=== PATIENT | female | born 1965 | race Caucasian/White ===

== ENCOUNTER → 2017-08-10 | Outpatient (CLI) | payer OTHER, SELFPAY ==
[2017-08-10 10:09] LABS: Absolute Lymphocyte Count 2.87 X10^3/ul (0.83-4.51); Absolute Neutrophil Count 4.6 X10^3/uL (2.0-7.7); Basophil# 0.05 X10^3/uL; Basophil% 0.6 % (0-1); Eosinophil# 0.18 X10^3/uL; Eosinophils% 2.2 % (0-5); Hematocrit 38.9 % (37-47); Hemoglobin 12.7 g/dl (12.0-15.0); Lymphocyte # 2.87 X10^3/ul (4.0); Lymphocyte % 35.2 % (19-41); Mean Corp Hgb Conc 32.6 g/gl (32-36); Mean Corpuscular Hgb 28.4 pg (27.0-32.0); Monocyte# 0.46 X10^3/uL; Monocyte% 5.6 % (0-10); Neutrophil # 4.59 X10^3/uL (2.7-7.7); Neutrophil % 56.3 % (47-70); Platelet Count 343 K/mm3 (150-450); RBC Distribution Width CV 14.6 % (11.6-14.6); RBC Distribution Width SD 46.4 fl (35.1-43.9); Red Blood Count 4.47 M/mm3 (4.2-5.4); White Blood Count 8.2 K/mm3 (4.4-11.0)
[2017-08-10 10:10] LABS: POSITIVE COUNT NO; POSITIVE DIFFERENTIAL NO; POSITIVE MORPHOLOGY NO
[2017-08-10 10:32] LABS: Vitamin B12 562 pg/mL (211-911)
[2017-08-10 10:39] LABS: ALB/GLOB Ratio 1.1 RATIO (0.9-2.4); AST(SGOT) 49 U/L (15-37); Alanine Aminotransfer ALT/SGPT 88 U/L (13-56); Albumin, Serum 3.7 g/dL (3.2-5.0); Alkaline Phosphatase 82 U/L (45-117); Anion Gap 8 (5-15); BUN 15 mg/dL (7-18); BUN/Creat Ratio 17.6 RATIO (10-20); Calcium,Total 8.4 mg/dL (8.5-10.1); Chloride 111 mmol/L (98-107); Creatinine, Serum 0.85 mg/dL (0.55-1.02); EST Glomerular Filtration Rate 74 mL/min (>60); Est Glom Filt Rate - Afr Amer 90 mL/min (>60); Globulin 3.5 g/dL (2.2-4.2); Glucose 112 mg/dL (74-106); Potassium 3.8 mmol/L (3.5-5.1); Protein, Total 7.2 g/dL (6.4-8.2); Sodium Level 143 mmol/L (136-145); Thyroid Stim Hormone (TSH) 1.84 uIU/mL (0.358-3.74)
[2017-08-10 10:46] LABS: Hemoglobin A1c 5.7 % (4.2-6.3)
[2017-08-13 15:13] LABS: Methylmalonic Acid Bld 87 nmol/L (0-378)
== END | disposition home or self-care (01) ==
LOC: MTLAB 08:09
PROVIDERS: Family Provider Family Medicine; PCP Family Medicine; Visit Provider Family Medicine
DX: E88.81 Metabolic syndrome and other insulin resistance (principal); R20.2 Paresthesia of skin
CPT/HCPCS: 36415; 80053; 82607; 83036; 83921; 84443; 85025

== ENCOUNTER → 2018-03-13 09:39 | Outpatient (CLI) | payer OTHER, SELFPAY ==
--- NOTE | 2018-03-13 09:46 | RAD_ITS ---
STUDY: X-RAY - LEFT ANKLE REASON FOR EXAM: Female, 52 years old. Pain and swelling following a twisting injury. TECHNIQUE: 3 view(s) of the ankle. COMPARISON: None. FINDINGS: Normal visualized distal tibia and fibula. Nondisplaced also fracture of the lateral malleolus. Normal tibiotalar articulation and ankle mortise. A spur is seen at the insertion of the Achilles tendon. The visualized subtalar, talonavicular, calcaneocuboid and tarsal articulations are normal. Soft tissue swelling. RAD/Ankle min 3 Views IMPRESSION: Nondisplaced avulsion fracture of the lateral malleolus with overlying soft tissue swelling. Electronically Signed: Mason Gonzalez MD at 10:10 EST Tel [phone], Service support ,
== END ==
PROVIDERS: Family Provider Family Medicine; PCP Family Medicine; Referring Provider Nurse Practitioner Family; Visit Provider Nurse Practitioner Family
DX: S93.402A Sprain of unspecified ligament of left ankle, initial encounter (principal)
CPT/HCPCS: 73610

== ENCOUNTER → 2018-11-04 16:02 | Outpatient (CLI) | payer OTHER, SELFPAY ==
[2016-12-18 08:55] VITALS: BMI 31.5
[2018-11-04 17:57] LABS: AST(SGOT) 50 U/L (15-37); Alanine Aminotransfer ALT/SGPT 90 U/L (13-56); Albumin, Serum 3.7 g/dL (3.2-5.0); Alkaline Phosphatase 107 U/L (45-117); Bilirubin, Direct 0.08 mg/dL (0.00-0.30); Globulin 3.6 g/dL (2.2-4.2); Protein, Total 7.3 g/dL (6.4-8.2)
== END ==
PROVIDERS: Family Provider Family Medicine; PCP Family Medicine; Referring Provider Family Medicine; Visit Provider Family Medicine
DX: B35.1 Tinea unguium (principal)
CPT/HCPCS: 36415; 80076

== ENCOUNTER 2021-05-23 16:49 | Outpatient (CLI) | payer BC, SELFPAY | END 2021-05-23 23:59 | disposition short-term general hospital (02) | LOC: MFPLAB 16:49 | PROVIDERS: PCP Family Medicine; Visit Provider Family Medicine | DX: N39.0 Urinary tract infection, site not specified (principal) | CPT/HCPCS: 87086; 87088 ==

== ENCOUNTER 2021-11-23 13:42 | Outpatient (CLI) | payer BC, SELFPAY ==
--- NOTE | 2021-11-23 13:44 | BI_ITS ---
MAMMOGRAPHY - BILATERAL SCREENING REASON FOR EXAM: Female, 55 years old. Routine annual screening examination. PERTINENT HISTORY: Sister with breast cancer. TECHNIQUE: Digital bilateral breast irma (3D mammographic acquisition) in the CC and MLO projections. 2-D mediolateral oblique (MLO) and craniocaudad (CC) views of both breasts were obtained. CAD: Full Field Digital Mammography with Computer Added Detection was performed. COMPARISON: Comparison is made with prior study 03/15/2012. FINDINGS: Breast Composition: There are scattered areas of fibroglandular density. There are no dominant masses or suspicious calcifications. There is an 8.3 mm nodular density in the upper anterior lateral aspect of the right breast. This most likely represents a small intramammary lymph node. Correlation with ultrasound recommended. No other significant abnormalities are identified. There has been no significant change since the prior study. BI/SCRN MAMM (CAD)W/IRMA BILAT IMPRESSION: Stable bilateral screening mammogram. Correlation with ultrasound of the right breast as described. ASSESSMENT CATEGORY: BIRADS Category 0: Incomplete. Need additional imaging evaluation. A letter regarding these results will be sent to the patient by the facility within 30 days. Approximately 10% of breast cancers are not detected by mammography. A normal mammogram should not delay biopsy of a clinically suspicious abnormality. [id number] Electronically Signed: Mason Gonzalez MD at 14:28 EDT ,
== END 2021-11-23 23:59 | disposition home or self-care (01) ==
LOC: OPBI 13:42
PROVIDERS: PCP Family Medicine; Visit Provider Family Medicine
DX: Z12.31 Encounter for screening mammogram for malignant neoplasm of breast (principal)
CPT/HCPCS: 77063; 77067

== ENCOUNTER 2021-11-25 13:53 | Outpatient (CLI) | payer BC, SELFPAY ==
--- NOTE | 2021-11-25 13:56 | US_ITS ---
STUDY: ULTRASOUND BREAST - RIGHT REASON FOR EXAM: Female, 55 years old. Abnormal screening mammogram. TECHNIQUE: Axial and longitudinal images of the RIGHT breast were performed with a high resolution ultrasound transducer. # OF IMAGES: 60 COMPARISON: Comparison is made with prior mammogram dated 11/23/2021. FINDINGS: RIGHT Breast: The mammographic marrow uptake corresponds to a 4 mm x 5 mm x 2 mm hypoechoic complex solid nodule at the 10 o''clock position of the breast at 5 cm a biopsy is recommended. Incidental note is made of a 2 lymph nodes in the right axilla. The larger measuring 1.4 cm x 0.8 cm x 0.5 cm. US/Breast Limited Unilateral IMPRESSION: 4 mm x 5 mm x 2 mm hypoechoic solid nodule at the 10 o''clock position breast 5 cm from nipple. Biopsy recommended. 2. Lymph nodes are seen in the right axilla the larger measuring 1.4 cm x 0.8 cm x 0.5 cm. These have a fatty hilum. ASSESSMENT CATEGORY: BIRADS Category 4: Suspicious - Biopsy Should Be Considered. A letter regarding these results will be sent to the patient by the facility within 30 days. Electronically Signed: Mason Gonzalez MD at 14:47 EDT ,
== END 2021-11-25 23:59 | disposition home or self-care (01) ==
LOC: OPUS 13:55
PROVIDERS: PCP Family Medicine; Visit Provider Family Medicine
DX: N63.10 Unspecified lump in the right breast, unspecified quadrant (principal)
CPT/HCPCS: 76642

== ENCOUNTER → 2021-12-06 | Outpatient (CLI) | payer BC, SELFPAY ==
[2021-12-06 18:37] LABS: Hemoglobin A1c 5.5 % (3.8-5.6)
[2021-12-06 18:39] LABS: AST(SGOT) 45 U/L (15-37); Alanine Aminotransfer ALT/SGPT 75 U/L (13-56); Albumin, Serum 3.9 g/dL (3.2-5.0); Alkaline Phosphatase 90 U/L (45-117); Anion Gap 6 (5-15); BUN 20 mg/dL (7-18); BUN/Creat Ratio 20.4 RATIO (10-20); Calcium,Total 9.4 mg/dL (8.5-10.1); Chloride 107 mmol/L (98-107); Cholesterol 185 mg/dL (200); Creatinine, Serum 0.98 mg/dL (0.55-1.02); EST Glomerular Filtration Rate 62 mL/min (>60); Est Glom Filt Rate - Afr Amer 75 mL/min (>60); Globulin 4.1 g/dL (2.2-4.2); Glucose 89 mg/dL (74-106); High Density Lipoprotein 35 mg/dL; Potassium 3.3 mmol/L (3.5-5.1); Sodium Level 138 mmol/L (136-145); Thyroid Stim Hormone (TSH) 1.41 uIU/mL (0.358-3.74); Triglycerides 267 mg/dL; Very Low Density Lipoprotein 53 mg/dL (5-40)
== END | disposition home or self-care (01) ==
LOC: MTLAB 15:50
PROVIDERS: PCP Family Medicine; Referring Provider Family Medicine; Visit Provider Family Medicine
DX: E66.9 Obesity, unspecified (principal); E88.81 Metabolic syndrome and other insulin resistance; E78.2 Mixed hyperlipidemia
CPT/HCPCS: 36415; 80053; 80061; 83036; 84443

== ENCOUNTER → 2023-03-09 | Outpatient (CLI) | payer BC, SELFPAY ==
[2023-03-09 17:30] LABS: Mucous, Urine 0 SEEN /hpf (<or=2+)
[2023-03-09 17:37] LABS: Color, Urine Yellow (Yellow); Glucose, Dipstick Normal (Normal); Ketone-Dipstick 5 mg/dl (Negative); Leukocyte Esterase-Dipstick 500 /ul (Negative); Nitrite-Dipstick Negative (Negative); Occult Blood-Urine 25 /ul (Negative); Protein-Dipstick 30 mg/dl (Negative); Specific Gravity, Urine 1.025 (1.002-1.030); Urine Clarity Sl. Cloudy (Clear); Urine Urobilinogen 1 mg/dl (Normal)
[2023-03-09 17:40] LABS: Urine Bilirubin Dipstick 1 mg/dL (Negative)
[2023-03-09 18:39] LABS: White Blood Cells 25-50 SEEN /hpf (0-5)
[2023-03-09 18:40] LABS: Bacteria RARE /hpf (None Seen); Red Blood Cells-Urine 0-5 SEEN /hpf (0-5); Squamous Epithelial Cells - UA 0-5 SEEN /hpf (5-10)
== END | disposition home or self-care (01) ==
PROVIDERS: PCP Family Medicine; Visit Provider Physician Assistant Surgical
DX: R30.0 Dysuria (principal)
CPT/HCPCS: 81001; 87077; 87086; 87088; 87186

== ENCOUNTER → 2024-09-18 | Outpatient (CLI) | payer BC, SELFPAY ==
[2024-09-18 10:45] LABS: Absolute Lymphocyte Count 3.91 X10^3/uL (0.83-4.51); Absolute Neutrophil Count 3.8 X10^3/uL (2.0-7.7); Basophil# 0.09 X10^3/uL; Basophil% 1.1 % (0-1); Eosinophil# 0.19 X10^3/uL; Eosinophils% 2.3 % (0-5); Hematocrit 43.7 % (37-47); Hemoglobin 14.1 g/dL (12.0-15.0); Lymphocyte # 3.91 X10^3/ul (0.83-4.51); Lymphocyte % 46.7 % (19-41); Mean Corp Hgb Conc 32.3 g/dL (32-36); Mean Corpuscular Hgb 27.5 pg (27.0-32.0); Mean Corpuscular Volume 85.4 fL (81-99); Mean Platelet Vol. 10.6 fl (6.2-12.0); Monocyte# 0.33 X10^3/uL; Monocyte% 3.9 % (0-10); NRBC Flagged by Analyzer 0 % (0-5); Neutrophil # 3.84 X10^3/uL (2.7-7.7); Neutrophil % 45.8 % (47-70); Platelet Count 326 K/mm3 (150-450); RBC Distribution Width CV 13.9 % (11.6-14.6); RBC Distribution Width SD 43.2 fl (35.1-43.9); Red Blood Count 5.12 M/mm3 (4.2-5.4); White Blood Count 8.4 K/mm3 (4.4-11.0)
[2024-09-18 11:35] LABS: ALB/GLOB Ratio 1.4 RATIO (0.9-2.4); AST(SGOT) 17 U/L (<=31); Alanine Aminotransfer ALT/SGPT 12 U/L (<=34); Albumin, Serum 4.5 g/dL (3.5-5.0); Alkaline Phosphatase 79 U/L (35-104); Anion Gap 10 (5-15); BUN 15 mg/dL (4-19); Carbon Dioxide 24.7 mmol/L (21.0-32.0); Chloride 105 mmol/L (98-108); Cholesterol 197 mg/dL (<=200); Creatinine, Serum 0.93 mg/dL (0.70-1.20); EST Glomerular Filtration Rate 71 (>60); Globulin 3.3 g/dL (2.2-4.2); Glucose 91 mg/dL (70-99); High Density Lipoprotein 51 mg/dL; Low Density Lipoprotein Calc. 113 mg/dL; Potassium 3.8 mmol/L (3.3-5.1); Protein, Total 7.9 g/dL (5.9-8.4); Sodium Level 140 mmol/L (133-145); Total Bilirubin 0.67 mg/dL (0.00-1.30); Triglycerides 164 mg/dL; Very Low Density Lipoprotein 33 mg/dL (5-40); cholesterol:hdl ratio screen 3.85
== END | disposition home or self-care (01) ==
LOC: MTLAB 07:36
PROVIDERS: PCP Family Medicine; Referring Provider Family Medicine; Visit Provider Family Medicine
DX: B35.1 Tinea unguium (principal); Z13.220 Encounter for screening for lipoid disorders
CPT/HCPCS: 36415; 80053; 80061; 85025

== ENCOUNTER → 2024-10-06 | Outpatient (CLI) | payer BC, SELFPAY ==
--- NOTE | 2024-10-06 14:49 | BI_ITS ---
EXAM: SCRN MAMM (CAD)W/IRMA BILAT DATE: 10/06/2024 CLINICAL HISTORY: F, Age 58 y/o , SCREENING BREAST CANCER RISK ASSESSMENT: Na TECHNIQUE: Bilateral screening digital breast tomosynthesis with 2D and 3D images. Computer aided detection. COMPARISON: Prior exam(s) were compared FINDINGS: TISSUE DENSITY: The breast tissue is composed of scattered area of fibroglandular density. Bilateral Breast Mammographic Findings: No suspicious masses, calcifications or other abnormalities are identified. BI/SCRN MAMM (CAD)W/IRMA BILAT IMPRESSION: OVERALL FINAL ASSESSMENT: BIRADS 1 NEGATIVE RECOMMENDATION: Routine annual follow-up in 1 Year A letter with findings and recommendations will be mailed to the patient. Reading Location: [id number]
--- OUTSIDE RECORDS SUMMARY | 2024-10-06 23:50 | XMS RPT_ITS | CCD ---
Author Organization [facility] Care Team Providers Care Acct Exec Name Role Phone Kevin RUIZ, Sharif Goodman Primary Care Provider COSTA CARRILLO Attending Unavailable COSTA CARRILLO Admitting Unavailable SHARIF BROWN Primary Care Unavailable Kevin RUIZ, Sharif Goodman Primary Care Provider [phone] Kevin RUIZ, Sharif Goodman Primary Care Provider SHAIRF BROWN Referring Unavailable EVONNE MORENO Attending Unavailable KEVIN, SHARIF RACHEAL Primary Care Unavailable EVONNE MORENO Referring Unavailable YOMAIRA DAY Attending Unavailable KEVIN, SHARIF RACHEAL Primary Care Unavailable EVONNE MORENO Attending Unavailable GRAF YOMAIRA Referring Unavailable BROWN, SHARIF RACHEAL Primary Care Unavailable BROWN, SHARIF RACHEAL Primary Care Unavailable BROWN, SHARIF RACHEAL Referring Unavailable PHUC, YOMAIRA Attending Unavailable EVONNE MORENO Attending Unavailable BROWN, SHARIF RACHEAL Primary Care Unavailable BROWN, SHARIF RACHEAL Primary Care Unavailable TIFFANIEEVONNE HAINES T Referring Unavailable EVONNE MOREON Attending Unavailable BROWN, SHARIF RACHEAL Primary Care Unavailable EVONNE MORENO Referring Unavailable BROWN, SHARIF RACHEAL Primary Care Unavailable Sharif Brown MD Primary Care Provider [phone] Dr. Sharif Brown Primary Care Provider [phone] Dr. Sharif Brown Referring Provider NATHALY Winters Attending Provider Sharif Brown Referring Unavailable Sharif Brown Attending Unavailable Brown, Sharif Primary Care Unavailable Brown, Sharif Referring Unavailable Brown, Sharif Attending Unavailable Kevin, Sharif Primary Care Unavailable Allergies Allergy Classification Reported Allergen(s) Allergy Type Date of Onset Reaction(s) Facility (14 sources) Erythromycin; Translations: [ERYTHROMYCIN] Drug Allergy 7 [facility] Work Phone: (13 sources) Penicillins; Translations: [PENICILLINS] Propensity to adverse reactions 7 [facility] Work Phone: (1 source) Penicillins Allergy to substance 3 Unknown [facility] (1 source) Erythromycin Drug Allergy 3 [facility] Repository (1 source) Penicillins Drug allergy (disorder) 3 [facility] Medications Current Medications Medication Drug Class(es) Dates Sig (Normalized) Sig (Original) Apap/Isometheptene/D ichlphen (Midrin) 1 CAPSULE capsule (4 sources) Start: 05-04-2015 Apap/Isometheptene/ Dichlphen (Midrin) 1 CAPSULE capsule Active 2 CAPSULE PO ONE TIME May 04, 2015 12:00am Start: 05-04-2015 Apap/Isomethep tene/Dichlphen (Midrin) 1 CAPSULE capsule Active 2 CAPSULE PO ONE TIME May 04, 2015 1:00am cyclobenzaprine hydrochloride 10 mg oral tablet (5 sources) Muscle Relaxant Start: 12-14-2016 take 10 mg by mouth three times daily as needed Cyclobenzaprine Active 10 MG PO 3 TIMES DAILY NEEDED December 13, 2016 11:00pm Comment on above: Take by mouth. Recei irma prescription today, has not started the medication. famotidine 40 mg oral tablet (13 sources) Histamine-2 Receptor Antagonist Start: 12-14-2016 take 1 tablet by mouth once daily Famotidine (Pepcid) 40 MG tablet Active 40 MG PO DAILY December 13, 2016 11:00pm famotidine (PEPC ID) 20 mg tablet Take 20 mg by mouth as needed. 0 Active Comment on above: Take 20 mg by mouth as needed. nitrofurantoin, macrocrystals 25 mg / nitrofurantoin, monohydrate 75 mg oral capsule (1 source) Nitrofuran Antibacterial Start: 023 take 1 capsule by mouth every twelve hours at mealtime Nitrofurantoin Monohyd/M-Cryst Active 1 CAP PO Q12H 14 7 March 09, 2023 12:00am administer with a meal/food; swallow whole; do not open, crush, dissolve , or chew Completed/Discontinued Medications Medication Drug Class(es) Dates Sig (Normalized) Sig (Original) acetaminophen 325 mg / caffeine 20 mg / isometheptene mucate 65 mg oral tablet (1 source) Central Nervous System Stimulant, Methylxanthine End: 10-18-2021 isomethepten-caf- acetaminophen (PRODRIN) 65-20-325 mg tab Take by mouth. Take two tablets at onset of headaches 0 10/18/2021 Discontinued Comment on above: Take by mouth. Take two tablets at onset of headaches acetaminophen 325 mg / HYDROcodone bitartrate 5 mg oral tablet (13 sources) Opioid Agonist Start: 05-04-2015 End: 01-06-2023 take 1 tablet by mouth once daily Hydrocodone-Aceta minophen Discontinued 1 TABLET PO DAILY May 04, 2015 12:00am January 06, 2023 7:48am Start: 08-10-2006 VICODIN 5 MG-5 00 MG TAB Take 1-2 tablet's) every six(6) hours as needed for pain. 0 08/10/2006 Active Comment on above: Take 1-2 tablet's) e very six(6) hours as needed for pain. azithromycin 250 mg oral tablet (1 source) Macrolide Antimicrobial Start: 3 End: 3 Azithromycin Discontinued 0 PO .COMPLEX January 05, 2023 11:00pm January 06, 2023 8:33am take 500 mg today (day 1), then 250 mg for 4 days (days 2-5) PO buPROPion (6 sources) Aminoketone BUPROPION HCL OR AL Take by mouth once daily. 0 Active Comment on above: Take by mouth once d aily. doxycycline hyclate 100 mg oral capsule (2 sources) Tetracycline-class Drug Start: 3 End: 3 take 100 mg by mouth twice daily Doxycycline Hyclate Discontinued 100 MG PO TWICE A DAY 16 02January 05, 2023 11:00pm January 15, 2023 11:04pm Start: 05-20-2022 End: 01-06-2023 take 100 mg by mouth twice daily Doxycycline Hyclate Discontinued 100 MG PO TWICE A DAY May 20, 2022 12:00am January 06, 2023 7:48am meloxicam 7.5 mg oral tablet (4 sources) Nonsteroidal Anti-inflammatory Drug End: 11-21-2021 take 1 tablet by mouth once daily meloxicam (MOBIC) 7.5 mg tablet Take 7.5 mg by mouth once daily. 5-7 days for menstrual symptoms 0 11/21/2021 Discontinued Comment on above: Take 7.5 mg by mouth once daily. 5-7 days for menstrual symptoms nortriptyline 10 mg oral capsule (9 sources) Tricyclic Antidepressant take 1-3 capsules by mouth once daily at dinner nortriptyline (PAMELOR) 10 mg capsule Take 10 mg by mouth daily at bedtime. 1-3 capsules as directed at dinner 0 Active Comment on above: Take 10 mg by mouth daily at bedtime. 1-3 capsules as directed at dinner omeprazole 40 mg delayed release oral capsule (1 source) Proton Pump Inhibitor Start: 08-13-2015 End: 10-18-2021 take 1 capsule by mouth once daily Omeprazole (PRILOSEC) 40 mg capsule Indications: Gastroesophageal reflux disease with esophagitis Take 1 capsule by mouth once daily. 30 capsule 3 08/13/2015 10/18/2021 Discontinued Comment on above: Take 1 capsule by [facility] once daily. oxybutynin chloride 5 mg oral tablet (6 sources) Cholinergic Muscarinic Antagonist take 5 mg by mouth once daily OXYBUTYNIN CHLORIDE ORAL Take 5 mg by mouth once daily. Oxybutynin chloride ER 0 Active Comment on above: Take 5 mg by mouth o nce daily. Oxybutynin chloride ER polyethylene glycol 3350 210402 mg / potassium chloride 2970 mg / sodium bicarbonate 6740 mg / sodium chloride 5860 mg / sodium sulfate 02427 mg powder for oral solution (1 source) Osmotic Laxative Start: 10-18-2021 End: 10-18-2021 peg 3350-Electrolytes (GOLYTELY) 236-22.74-6.74 -5.86 gram suspension Take 4,000 mL by mouth one time only for 1 dose. 1 Each 0 10/18/2021 10/18/2021 Comment on above: Take 4,000 mL by giselle one time only for 1 dose. Problems Active Problems Problem Classification Problem Date Documented Da te Episodic/Chronic Adjustment disorders (9 sources) Adjustment disorder; Translations: [Adjustment disorder with other symptoms] Onset: 12-28-2010 12-28-2010 Chronic Genitourinary symptoms and ill-defined conditions (1 source) Stress incontinence (female) (male); Translations: [STRESS INCONTINENCE FEMALE MALE] Onset: 11-14-2021 Chronic Immunizations and screening for infectious disease (2 sources) Contact with and (suspected) exposure to other viral communicable diseases; Translations: [Contact with or suspected exposure to other viral communicable disease] 01-06-2023 Episodic Mycoses (1 source) Tinea unguium; Translations: [Tinea unguium] Onset: 09-20-2024 Episodic Other and unspecified benign neoplasm (1 source) Tubular adenoma ; Translations: [Benign neoplasm, unspecified site] Episodic Other screening for suspected conditions (not mental disorders or infectious disease) (20 sources) Patient encounter status; Translations: [Encounter for screening for malignant neoplasm of colon] Onset: 08-10-2006 Episodic Other upper respiratory infections (2 sources) Acute bacterial sinusitis; Translations: [Acute sinusitis, unspecified] 05-20-2022 Episodic Otitis media and related conditions (1 source) Acute bilateral otitis media ; Translations: [Otitis media, unspecified, bilateral] 05-20-2022 Episodic Residual codes; unclassified (4 sources) Family history of cancer of colon; Translations: [Family history of malignant neoplasm of digestive organs] Episodic Spondylosis; intervertebral disc disorders; other back problems (12 sources) Arthropathy of cervical spine facet joint; Translations: [Spondylosis without myelopathy or radiculopathy, cervical region] 12-18-2016 Chronic Urinary tract infections (1 source) Urinary tract infection, site not specified; Translations: [Urinary tract infection, site not specified] 03-09-2023 Episodic Past or Other Problems Problem Classification Problem Date Documented Date Episodic/Chronic Abdominal pain (9 sources) Epigastric pain; Translations: [Epigastric pain] Onset: 05-07-2015 05-07-2015 Episodic Administrative/socia l admission (18 sources) Marital conflict; Translations: [Problems in relationship with spouse or partner] Onset: 12-28-2010 12-28-2010 Episodic Nonspecific chest pain (9 sources) Chest pain; Translations: [Chest pain, unspecified] Onset: 05-07-2015 05-07-2015 Episodic Residual codes; unclassified (1 source) Family history of malignant neoplasm of digestive organs; Translations: [Family history of colon cancer] Onset: 11-08-2021 Episodic Sexually transmitted infections (not HIV or hepatitis) (9 sources) Human papillomavirus deoxyribonucleic acid test positive, high risk on cervical specimen; Translations: [Cervical high risk human papillomavirus (HPV) DNA test positive] Onset: 10-21-2018 11-08-2018 Episodic Results Test Name Value Interpretation Reference Range Facility CBC W/Diff, Automatedon 08-29 Absolute Lymph 3.91 X10 3/uL Normal 0.83-4.51 [facility] Comment on above: Order Comment: Order Date: 09/01/24 Order Info: [id number] - CBCD Performed By: #### L [id number], [id number], [id number] #### [facility] [address] [place], [address] Absolute Neut 3.8 X10 3/uL Normal 2.0-7.7 [facility] Comment on above: Order Comment: Order Date: 09/01/24 Order Info: [id number] - CBCD Performed By: #### L 500.4100, [id number], [id number] #### [facility] [address] [place], [address] Basophils/100 WBC (Bld) 1.1 % High 0-1 [facility] Comment on above: Order Comment: Order Date: 09/01/24 Order Info: [id number] - CBCD Performed By: #### L 500.4100, [id number], [id number] #### [facility] [address] [place], [address] Eosinophils/100 WBC (Bld) 2.3 % Normal 0-5 [facility] Comment on above: Order Comment: Order Date: 09/01/24 Order Info: [id number] - CBCD Performed By: #### L [id number], [id number], [id number] #### [facility] [address] [place], [address] Erythrocyte distribution width (RBC) [Ratio] 13.9 % Normal 11.6-14.6 [facility] Comment on above: Order Comment: Order Date: 09/01/24 Order Info: [id number] - CBCD Performed By: #### L 500.4100, [id number], [id number] #### [facility] [address] [place], [address] Hematocrit (Bld) [Volume fraction] 43.7 % Normal 37-47 [facility] Comment on above: Order Comment: Order Date: 09/01/24 Order Info: [id number] - CBCD Performed By: #### L 500.4100, [id number], [id number] #### [facility] [address] [place], [address] Hemoglobin (Bld) [Mass/Vol] 14.1 g/dL Normal 12.0-15.0 [facility] Comment on above: Order Comment: Order Date: 09/01/24 Order Info: [id number] - CBCD Performed By: #### L 500.4100, [id number], [id number] #### [facility] [address] [place], [address] IG% 0.200 Normal 0.0-0.9 [facility] Comment on above: Order Comment: Order Date: 09/01/24 Order Info: [id number] - CBCD Result Comment: IG% - Immature Granulocytes (promyelocytes, myelocytes and metamyelocytes) > 1% indicates that a LEFT SHIFT is Present. Performed By: #### L 500.4100, [id number], [id number] #### [facility] [address] [place], [address] Lymphocytes/100 WBC (Bld) 46.7 % High 19-41 [facility] Comment on above: Order Comment: Order Date: 09/01/24 Order Info: [id number] - CBCD Performed By: #### L 500.4100, [id number], [id number] #### [facility] [address] [place], [address] MCH (RBC) [Entitic mass] 27.5 pg Normal 27.0-32.0 [facility] Comment on above: Order Comment: Order Date: 09/01/24 Order Info: [id number] - CBCD Performed By: #### L 500.4100, [id number], [id number] #### [facility] [address] [place], [address] MCHC (RBC) [Mass/Vol] 32.3 g/dL Normal 32-36 [facility] Comment on above: Order Comment: Order Date: 09/01/24 Order Info: [id number] - CBCD Performed By: #### L 500.4100, [id number], [id number] #### [facility] [address] [place], [address] MCV (RBC) [Entitic vol] 85.4 fL Normal 81-99 [facility] Comment on above: Order Comment: Order Date: 09/01/24 Order Info: [id number] - CBCD Performed By: #### L 500.4100, [id number], [id number] #### [facility] [address] [place], [address] Monocytes/100 WBC (Bld) 3.9 % Normal 0-10 [facility] Comment on above: Order Comment: Order Date: 09/01/24 Order Info: [id number] - CBCD Performed By: #### L 500.4100, [id number], [id number] #### [facility] [address] [place], [address] Neutrophils/100 WBC (Bld) 45.8 % Low 47-70 [facility] Comment on above: Order Comment: Order Date: 09/01/24 Order Info: [id number] - CBCD Performed By: #### L 500.4100, [id number], [id number] #### [facility] [address] [place], [address] Nucleated RBC (Bld) [#/Vol] 0 10*3/uL Normal 0-5 [facility] Comment on above: Order Comment: Order Date: 09/01/24 Order Info: [id number] - CBCD Performed By: #### L 500.4100, [id number], [id number] #### [facility] [address] [place], [address] Platelet mean volume (Bld) [Entitic vol] 10.6 fL Normal 6.2-12.0 [facility] Comment on above: Order Comment: Order Date: 09/01/24 Order Info: [id number]- - CBCD Performed By: #### L 500.4100, [id number], [id number] #### [facility] [address] [place], [address] Platelets (Bld) [#/Vol] 326 10*3/uL Normal 150-450 [facility] Comment on above: Order Comment: Order Date: 09/01/24 Order Info: [id number]- - CBCD Performed By: #### L 500.4100, [id number], [id number] #### [facility] [address] [place], [address] RBC (Bld) [#/Vol] 5.12 10*6/uL Normal 4.2-5.4 [facility] Comment on above: Order Comment: Order Date: 09/01/24 Order Info: [id number] - CBCD Performed By: #### L 500.4100, [id number], [id number] #### [facility] [address] [place], [address] RDW SD 43.2 fl Normal 35.1-43.9 [facility] Comment on above: Order Comment: Order Date: 09/01/24 Order Info: [id number] - CBCD Performed By: #### L 500.4100, [id number], [id number] #### [facility] [address] [place], [address] WBC (Bld) [#/Vol] 8.4 10*3/uL Normal 4.4-11.[address] [facility] Comment on above: Order Comment: Order Date: 09/01/24 Order Info: [id number] - CBCD Performed By: #### L 500.4100, [id number], [id number] #### [facility] [address] [place], [address] Comprehensive Metabolic Prof ilon 09-18-2024 Albumin [Mass/Vol] 4.5 g/dL Normal 3.5-5.[address] [facility] Comment on above: Order Comment: Order Date: 09/01/24 Order Info: [id number] - CMP Order Info: [id number] - LIPID Performed By: #### L 500.4100, [id number], [id number] #### [facility] [address] [place], [address] Albumin/Globulin [Mass ratio] 1.4 {ratio} Normal 0.9-2.4 [facility] Comment on above: Order Comment: Order Date: 09/01/24 Order Info: [id number] - CMP Order Info: [id number] - LIPID Performed By: #### L 500.4100, [id number], [id number] #### [facility] [address] [place], [address] ALK PHOS 79 U/L Normal 35-104 [facility] Comment on above: Order Comment: Order Date: 09/01/24 Order Info: [id number] - CMP Order Info: [id number] - LIPID Performed By: #### L 500.4100, [id number], [id number] #### [facility] [address] [place], [address] ALT [Catalytic activity/Vol] 12 U/L Normal <=34 [facility] Comment on above: Order Comment: Order Date: 09/01/24 Order Info: [id number] - CMP Order Info: [id number] - LIPID Performed By: #### L 500.4100, [id number], [id number] #### [facility] [address] [place], [address] AST [Catalytic activity/Vol] 17 U/L Normal <=31 [facility] Comment on above: Order Comment: Order Date: 09/01/24 Order Info: [id number] - CMP Order Info: [id number] - LIPID Performed By: #### L 500.4100, [id number], [id number] #### [facility] [address] [place], [address] Bilirubin [Mass/Vol] 0.67 mg/dL Normal 0.00-1.30 [facility] Comment on above: Order Comment: Order Date: 09/01/24 Order Info: [id number] - CMP Order Info: [id number] - LIPID Performed By: #### L 500.4100, [id number], [id number] #### [facility] [address] [place], [address] BUN/CRE 16.0 RATIO Normal 10-20 [facility] Comment on above: Order Comment: Order Date: 09/01/24 Order Info: [id number] - CMP Order Info: [id number] - LIPID Performed By: #### L 500.4100, [id number], [id number] #### [facility] [address] [place], [address] Calcium [Mass/Vol] 9.0 mg/dL Normal 7.6-11.[address] [facility] Comment on above: Order Comment: Order Date: 09/01/24 Order Info: [id number] - CMP Order Info: [id number] - LIPID Performed By: #### L 500.4100, [id number], [id number] #### [facility] [address] [place], [address] Chloride [Moles/Vol] 105 mmol/L Normal 98-108 [facility] Comment on above: Order Comment: Order Date: 09/01/24 Order Info: [id number] - CMP Order Info: [id number] - LIPID Performed By: #### L 500.4100, [id number], [id number] #### [facility] [address] [place], [address] CO2 [Moles/Vol] 24.7 mmol/L Normal 21.0-32.0 [facility] Comment on above: Order Comment: Order Date: 09/01/24 Order Info: [id number] - CMP Order Info: [id number] - LIPID Performed By: #### L 500.4100, [id number], [id number] #### [facility] [address] [place], [address] Creatinine [Mass/Vol] 0.93 mg/dL Normal 0.70-1.20 [facility] Comment on above: Order Comment: Order Date: 09/01/24 Order Info: [id number] - CMP Order Info: [id number] - LIPID Performed By: #### L 500.4100, [id number], [id number] #### [facility] [address] [place], [address] GAP 10 Normal 5-15 [facility] Comment on above: Order Comment: Order Date: 09/01/24 Order Info: [id number] - CMP Order Info: [id number] - LIPID Performed By: #### L 500.4100, [id number], [id number] #### [facility] [address] [place], [address] GFR/1.73 sq M.predicted among non-blacks MDRD (S/P/Bld) [Vol rate/Area] 71 mL/min/{1.73_m2} Normal >60 [facility] Comment on above: Order Comment: Order Date: 09/01/24 Order Info: [id number] - CMP Order Info: [id number] - LIPID Result Comment: mL/m in/1.73m2 CKD-EPI Creatinine Equation (2020) Performed By: #### L 500.4100, [id number], [id number] #### [facility] [address] [place], [address] Globulin (S) [Mass/Vol] 3.3 g/dL Normal 2.2-4.2 [facility] Comment on above: Order Comment: Order Date: 09/01/24 Order Info: [id number] - CMP Order Info: [id number] - LIPID Performed By: #### L 500.4100, [id number], [id number] #### [facility] [address] [place], [address] Glucose [Mass/Vol] 91 mg/dL Normal 70-[address] [facility] Comment on above: Order Comment: Order Date: 09/01/24 Order Info: [id number] - CMP Order Info: [id number] - LIPID Performed By: #### L 500.4100, [id number], [id number] #### [facility] [address] [place], [address] Potassium [Moles/Vol] 3.8 mmol/L Normal 3.3-5.1 [facility] Comment on above: Order Comment: Order Date: 09/01/24 Order Info: [id number] - CMP Order Info: [id number] - LIPID Performed By: #### L 500.4100, [id number], [id number] #### [facility] [address] [place], [address] Sodium [Moles/Vol] 140 mmol/L Normal 133-[address] [facility] Comment on above: Order Comment: Order Date: 09/01/24 Order Info: [id number] - CMP Order Info: [id number] - LIPID Performed By: #### L 500.4100, [id number], [id number] #### [facility] [address] [place], [address] T PROT 7.9 g/dL Normal 5.9-8.4 [facility] Comment on above: Order Comment: Order Date: 09/01/24 Order Info: [id number]- - CMP Order Info: [id number] - LIPID Performed By: #### L 500.4100, [id number], [id number] #### [facility] [address] [place], [address] Urea nitrogen [Mass/Vol] 15 mg/dL Normal 4-19 [facility] Comment on above: Order Comment: Order Date: 09/01/24 Order Info: [id number]- - CMP Order Info: [id number] - LIPID Performed By: #### L 500.4100, [id number], [id number] #### [facility] [address] [place], [address] Lipid Profileon 09-18-2024 CHOL:HDL 3.85 Normal [facility] Comment on above: Order Comment: Order Date: 09/01/24 Order Info: [id number] - CMP Order Info: [id number] - LIPID Performed By: #### L 500.4100, [id number], [id number] #### [facility] [address] [place], [address] Cholesterol [Mass/Vol] 197 mg/dL Normal <=200 [facility] Comment on above: Order Comment: Order Date: 09/01/24 Order Info: [id number] - CMP Order Info: [id number] - LIPID Result Comment: Chol esterol level, Desirable <200 mg/dL Borderline high cholesterol 200-239 mg/dL High cholesterol >=240 mg/dL Recommendations of the NCEP Adult Treatment Panel for the following risk-cutoff thresholds for the [place] population. Performed By: #### L 500.4100, L500.4050, [id number] #### [facility] [address] [place], [address] Cholesterol in HDL [Mass/Vol] 51 mg/dL Normal [facility] Comment on above: Order Comment: Order Date: 09/01/24 Order Info: [id number] - CMP Order Info: [id number] - LIPID Result Comment: [place] onal Cholesterol Education Program (NCEP) guidelines: <40 mg/dL: Low HDL-cholesterol (major risk factor for CHD) >= 60 mg/dL: High HDL-cholesterol (negative risk factor for CHD) HDL-cholesterol is affected by a number of factors, e.g. smoking, exercise, hormones, sex and age. Performed By: #### L 500.4100, [id number], [id number] #### [facility] [address] [place], [address] Cholesterol in LDL [Mass/Vol] 113 mg/dL Normal [facility] Comment on above: Order Comment: Order Date: 09/01/24 Order Info: [id number] - CMP Order Info: [id number] - LIPID Result Comment: Bord hfhlur=676-288 mg/dL Higher Xkvt=153 mg/dL or greater Performed By: #### L 500.4100, L500.4050, L100.0100 #### [facility] [address] [place], [address] Cholesterol in VLDL [Mass/Vol] 33 mg/dL Normal 5-40 [facility] Comment on above: Order Comment: Order Date: 09/01/24 Order Info: [id number] - CMP Order Info: [id number] - LIPID Performed By: #### L 500.4100, L500.4050, L100.0100 #### [facility] [address] [place], [place], [address] Triglyceride [Mass/Vol] 164 mg/dL Normal [facility] Comment on above: Order Comment: Order Date: 09/01/24 Order Info: [id number] - CMP Order Info: [id number] - LIPID Result Comment: The drugs N-Acetylcysteine and Metamizole may falsely depress this assay. Normal range: <150 mg/dL Borderline High: 150-199 mg/dL High: 200-499 mg/dL Very High: >500 mg/dL Performed By: #### L 500.4100, L500.4050, L100.0100 #### [facility] [address] [place], [place], [id number] Basophil percentageOrdered B y: Sesar Wood on 03-09-2023 Basophil percentage 25-50 SEEN /hpf 0-5 [facility] Bilirubin Test strip Ql (U)O rdered By: Sesar Wood on 03-09-2023 Bilirubin Ql (U) 1 mg/dL Negative [facility] Comment on above: COLOR OF URINE MAY A FFECT DIPSTICK RESULTS. Culture, urineOrdered By: Duyen Wood on 03-09-2023 Bacteria identified Cx Nom (U) Escherichia coli [facility] Ketones Test strip Ql (U)Ord ered By: Sesar Wood on 03-09-2023 Ketones Ql (U) 5 mg/dl Negative [facility] - Chemistry and C hemistry - challengeon 03-09-2023 Bilirubin Ql (U) Small (1+) [facility] Glucose Ql (U) Negative [facility] Ketones Ql (U) Trace (5) [facility] pH (U) 5.0 [pH] [facility] Specific gravity (U) [Rel density] 1.025 [facility] Urobilinogen (U) [Mass/Vol] 0.6325190 mg/dL [facility] - Hematology and Cell countson 03-09-2023 Hemoglobin Ql (U) Negative [facility] - Specimen inform ationon 03-09-2023 Clarity (U) Cloudy [facility] Color (U) ORANGE [facility] - Urinalysison Nitrite Ql (U) Negative [facility] Protein Ql (U) 1+ [facility] Mucus LM Ql (Urine sed)Order ed By: Sesar Wood on 03-09-2023 Mucus Ql (Urine sed) 0 SEEN /hpf [facility] Nitrite Test strip Ql (U)Ord ered By: Sesar Wood on 03-09-2023 Nitrite Ql (U) Negative Negative [facility] No Panel Informationon 03-09 Urine Leukocytes Positive [facility] Urine Non-Hemolyzed Blood Negative [facility] Protein Test strip Ql (U)Ord ered By: Sesar Wood on 03-09-2023 Protein Ql (U) 30 mg/dl Negative [facility] Squamous epithelial cells de tection in urine sediment by light microscopyOrdered By: Sesar Wood on 03-09-2023 Epithelial cells.squamous LM Ql (Urine sed) 0-5 SEEN /hpf 5-10 [facility] Urine blood detectionOrdered By: Sesar Wood on 03-09-2023 RBC Ql (U) 25 /ul Negative [facility] RBC Ql (U) 0-5 SEEN /hpf 0-5 [facility] Urine clarityOrdered By: Lenny Wood on 03-09-2023 Clarity (U) Sl. Cloudy Clear [facility] Urine color determinationOrd ered By: Sesar Wood on 03-09-2023 Color (U) Yellow Yellow [facility] Urine glucose detectionOrder ed By: Sesar Wood on 03-09-2023 Glucose Ql (U) Normal mg/dl Normal [facility] Urine leukocyte esterase det ection by dipstickOrdered By: Sesar Wood on 03-09-2023 Leukocyte esterase Test strip Ql (U) 500 /ul Negative [facility] Urine pHOrdered By: Sesar post on 03-09-2023 pH (U) 5.0 [pH] 5.0 - 8.0 [facility] Urine sediment bacteria coun t by microscopy (number/high power field)Ordered By: Sesar Wood on 03-09-2023 Bacteria LM.HPF (Urine sed) [#/Area] RARE /hpf None Seen [facility] Urine specific gravity measu rementOrdered By: Sesar Wood on 03-09-2023 Specific gravity (U) [Rel density] 1.025 1.002-1.030 [facility] Urobilinogen Auto test strip Ql (U)Ordered By: Sesar Wood on 03-09-2023 Urobilinogen Ql (U) 1 mg/dl Normal [facility] - Microbiology an d Antimicrobial susceptibilityon 01-06-2023 SARS-CoV-2 (COVID-19) RNA BIBI+probe Ql (Unsp spec) Not detected [facility] No Panel Informationon 01-06 Influenza Types A,B Rapid (Clinic) Not detected [facility] CNOVon 06-27-2022 CNOV Office Visit (GENSWS) ANGELIKA LOPEZGWEN J ([id number]) 1965 F Date Time Provider Department 06/27/22 2:00 PM EVONNE MORENO During your visit today, we recorded the following information about you: Temperature Pulse Blood pressure Weight 97.9 degrees 91/minute 128/82 98.2 kg Evonne Moreno MD 06/27/2022 7:52 PM Signed FOLLOW UP VISIT - POST RIGHT ULTRASOUND GUIDED CORE BIOPSY NAME: Gwen Wagoner Angelika Lopez [facility] NO.: [id number] DATE OF SERVICE: June 27, 2022 : 1965 REFERRING PHYSICIAN: Sharif Brown MD, MD Hidalgo is a patient I am following for abnormal right breast imaging. The patient is a 55 year old female with a complaint of an abnormal mammogram. The patient had a mammogram with ultrasound on November 25, 2021 which demonstrated a vague abnormality in the right upper outer breast along with a 4 x 5 mm hypoechoic complex solid lesion at the 10 o'clock position 5 to 6 cm from the nipple. Biopsy was recommended. The patient denies a history of breast masses. She occasionally perform a self breast exam routinely. She notes no skin changes. She denies nipple discharge. She notes no axillary masses. She notes a family history of breast problems with multiple second-degree relatives with a history of breast cancer. She notes no significant breast trauma or breast difficulties in the past. The patient is being seen by me at the request of Dr. Sharif Brown MD, MD for my opinion and advice regarding abnormal right breast imaging. I performed a right side ultrasound guided core biopsy for her abnormal mammogram on December 08, 2021. The pathology returned as: FINAL DIAGNOSIS A. Right breast, core biopsy: - Stromal fibrosis, apocrine cysts, and usual ductal hyperplasia. The patient noted slight bruising since the procedure. He returns today for 6-month follow-up examination. She notes no current complaints except for an occasional twinge of discomfort for what she believes to be the location of the biopsy site in her right breast. She had follow-up mammogram on June 20, 2022. This demonstrated: IMPRESSION: BENIGN FINDING There is no mammographic evidence of malignancy. Return to annual mammogram screening schedule is recommended. VITALS: Blood pressure 128/82, pulse 91, temperature 36.6 ?C (97.9 ?F), weight 98.2 kg (216 lb 6.4 oz), last menstrual period 01/12/2018, SpO2 96 %. On examination, the right side breast biopsy site is clean, dry, and intact. Her bilateral axillary exam is negative. Her bilateral breast exam demonstrates multiple small benign feeling nodules with no suspicious areas. Assessment IMPRESSION: status post ultrasound guided core biopsy for right side breast intraductal hyperplasia without atypia apocrine cyst and stromal fibrosis. PLAN: If Gwen notes any problems, she should contact me immediately. I reminded her about the importance of self - breast exam. I recommend she perform monthly self breast exams. If any palpable abnormalities, change in breast exam, or any difficulties are noted, she is to contact my office immediately. I generally recommend follow up bilateral mammogram in 6 months. Diagnoses: (R92.8) Abnormal finding on breast imaging (primary encounter diagnosis) Return to Clinic: The patient is instructed to follow-up with me in 6 months, you should obtain a mammogram prior to this follow up visit. Evonne Moreno MD Referring Provider: SELF [[id number]] Allergies As of Date: 06/27/2022 Noted Allergy Reaction ERYTHROMYCIN 08/10/2006 2 - Rash PENICILLINS 08/10/2006 2 - Rash Date Reviewed: 06/27/2022 Reviewed by: Evonne Moreno MD - Fully Assessed Reason for Visit: Follow Up [171] Cmt: 6 month follow up right breast biopsy Primary Visit Diagnosis:Abnormal finding on breast imaging [R92.8] Order(s):[facility] SCREENING [[id number]] Order #: [id number] FUTURE Prescriptions as of 06/27/2022 - cyclobenzaprine (FLEXERIL) 10 mg tablet Take by mouth. Received prescription today, has not started the medication. - OXYBUTYNIN CHLORIDE ORAL Take 5 mg by mouth once daily. Oxybutynin chloride ER - BUPROPION HCL ORAL Take by mouth once daily. - famotidine (PEPCID) 20 mg tablet Take 20 mg by mouth as needed. - nortriptyline (PAMELOR) 10 mg capsule Take 10 mg by mouth daily at bedtime. 1-3 capsules as directed at dinner - VICODIN 5 MG-500 MG TAB Take 1-2 tablet's) every six(6) hours as needed for pain. Problem List As Of Date 06/27/2022 Noted Resolved UNSP ABNORMAL MAMMOGRAM [R92.8] 08/10/2006 Adj react-emotion NEC [F43.29] 12/28/2010 Marital conflict [Z63.0] 12/28/2010 Parent-child conflict [Z62.820] 12/28/2010 Encounter for screening colonoscopy [Z12.11] 03/24/2015 Epigastric pain [R10.13] 05/07/2015 Chest pain [R07.9] 05/07/2015 Cervical high risk HPV (human papillomavirus) t*06/ (more content not included)... Normal [facility] DIAGNOSTIC RTon 06-20-19 23 [facility] DIAGNOSTIC RT * * *Final Report* * * DATE OF EXAM: Jun 20 2022 10:24AM WRW 0626 - [facility] DIAGNOSTIC RT / PROCEDURE REASON: Abnormal finding on breast imaging * * * * Physician Interpretation * * * * RESULT: #[id number] - [facility] DIAGNOSTIC RT UNILATERAL RIGHT DIGITAL DIAGNOSTIC MAMMOGRAM WITH CAD: 06/20/2022 HISTORY: Abnormal Finding On Breast Imaging/6 month follow up post biopsy right /priors available for comparison. RESULT: TECHNIQUE: The study was acquired using full field digital technology and interpreted from soft copy. Current study was also evaluated with a Computer Aided Detection (CAD). Comparison is made to exam dated: 12/08/2021 mammogram - [facility]. There are scattered fibroglandular elements in right breast. Scattered stable appearing nodular densities are present. There is a stable biopsy clip in the right breast. No significant masses, calcifications, or other findings are seen in the breast. IMPRESSION: BENIGN FINDING There is no mammographic evidence of malignancy. Return to annual mammogram screening schedule is recommended. Mirna parkinson/shawn:06/20/2022 10:33:11 Superintendent Custodian Janitor(s): RT Ricardo(R)(M), [facility] Mammogram BI-RADS: 2 Benign finding Multiple national specialty organizations have released breast cancer screening guidelines for women at average risk for developing breast cancer - guidelines that are based on both evidence and opinion, yet differ on when to start and how often to screen for breast cancer. With representation from Breast Imaging, Internal Medicine, Women's Health, Family Medicine, and Medical/Surgical Oncology, the [facility] has carefully reviewed the data and reached the following consensus: 1) All women should engage in shared decision-making with their providers to decide when to start and how often to screen; 2) All women should have the opportunity to start screening mammography at age 40; 3) For women ages 45-55, we recommend annual screening mammograms; 4) For women ages 55 and over, we support both the transition from an annual to a biennial interval if this aligns more with patient's values and preferences, or continuation with annual screening; 5) All women should discuss with their providers when to stop screening mammograms. Municipal Engineer: Shawn Transcribe Date/Time: Jun 20 2022 10:12A Dictated by: MIRNA MATT MD This examination was interpreted and the report reviewed and electronically signed by: MIRNA MATT MD on Jun 20 2022 10:33AM EST [id number] CN Normal [facility] CNOVon 12-15-2021 CNOV Office Visit (GENSWS) GWNE MATHIAS ([id number]) 1965 F Date Time Provider Department 12/15/21 9:20 AM EVONNE MORENO During your visit today, we recorded the following information about you: Temperature Pulse Blood pressure Weight 97.9 degrees 96/minute 118/78 90.7 kg Height 1.575 m Evonne Moreno MD 12/15/2021 10:34 AM Signed FOLLOW UP VISIT - POST RIGHT ULTRASOUND GUIDED CORE BIOPSY NAME: Gwen Lopez CLINIC NO.: [id number] DATE OF SERVICE: 12/15/2021 : 1965 REFERRING PHYSICIAN: Sharif Brown MD, MD Gwen is a patient I am following for abnormal right breast imaging. The patient is a 55 year old female with a complaint of an abnormal mammogram. The patient had a mammogram with ultrasound on November 25, 2021 which demonstrated a vague abnormality in the right upper outer breast along with a 4 x 5 mm hypoechoic complex solid lesion at the 10 o'clock position 5 to 6 cm from the nipple. Biopsy was recommended. The patient denies a history of breast masses. She occasionally perform a self breast exam routinely. She notes no skin changes. She denies nipple discharge. She notes no axillary masses. She notes a family history of breast problems with multiple second-degree relatives with a history of breast cancer. She notes no significant breast trauma or breast difficulties in the past. The patient is being seen by me at the request of Dr. Sharif Brown MD, MD for my opinion and advice regarding abnormal right breast imaging. I performed a right side ultrasound guided core biopsy for her abnormal mammogram on December 08, 2021. The pathology returned as: FINAL DIAGNOSIS A. Right breast, core biopsy: - Stromal fibrosis, apocrine cysts, and usual ductal hyperplasia. The patient notes slight bruising since the procedure. VITALS: Last menstrual period 01/12/2018. On examination, the right side breast biopsy site is clean, dry, and intact. There is slight bruising of the site. Assessment IMPRESSION: status post ultrasound guided core biopsy for right side breast intraductal hyperplasia without atypia apocrine cyst and stromal fibrosis. PLAN: If Gwen notes any problems, she should contact me immediately. I reminded her about the importance of self - breast exam. I recommend she perform monthly self breast exams. If any palpable abnormalities, change in breast exam, or any difficulties are noted, she is to contact my office immediately. I generally recommend follow up unilateral mammogram and ultrasound 6 months following biopsy. Diagnoses: (R92.8) Abnormal finding on breast imaging (primary encounter diagnosis) Return to Clinic: The patient is instructed to follow-up with me in 6 months, you should obtain a mammogram and ultrasound prior to this follow up visit. Evonne Moreno MD Referring Provider: SELF [200] Allergies As of Date: 12/15/2021 Noted Allergy Reaction ERYTHROMYCIN 08/10/2006 2 - Rash PENICILLINS 08/10/2006 2 - Rash Date Reviewed: 12/15/2021 Reviewed by: Tiffanie Lopez LPN - Fully Assessed Reason for Visit: Follow Up [171] Cmt: Right breast biopsy results Primary Visit Diagnosis:Abnormal finding on breast imaging [R92.8] Order(s):[facility] DIAGNOSTIC RT [[id number]] Order #: [id number] FUTURE BREAST LTD RT [[id number]] Order #: [id number] FUTURE Prescriptions as of 12/15/2021 - OXYBUTYNIN CHLORIDE ORAL Take 5 mg by mouth once daily. Oxybutynin chloride ER - BUPROPION HCL ORAL Take by mouth once daily. - famotidine (PEPCID) 20 mg tablet Take 20 mg by mouth as needed. - nortriptyline (PAMELOR) 10 mg capsule Take 10 mg by mouth daily at bedtime. 1-3 capsules as directed at dinner - VICODIN 5 MG-500 MG TAB Take 1-2 tablet's) every six(6) hours as needed for pain. Problem List As Of Date 12/15/2021 Noted Resolved UNSP ABNORMAL MAMMOGRAM [R92.8] 08/10/2006 Adj react-emotion NEC [F43.29] 12/28/2010 Marital conflict [Z63.0] 12/28/2010 Parent-child conflict [Z62.820] 12/28/2010 Encounter for screening colonoscopy [Z12.11] 03/24/2015 Epigastric pain [R10.13] 05/07/2015 Chest pain [R07.9] 05/07/2015 Cervical high risk HPV (human papillomavirus) t*10/21/2018 Letter Text Encounter Status:Closed by EVONNE MORENO on 12/15/21 [facility] CNOVon 12-08-2021 CNOV Office Visit (GENSWS) GWEN MATHIAS ([id number]) 1965 Date Time Provider Department 12/08/21 9:20 AM EVONNE MORENO GENSWS During your visit today, we recorded the following information about you: Temperature Pulse Blood pressure Weight 98.7 degrees 83/minute 134/74 92.1 kg Height 1.575 m Sybil Ordoñez 12/08/2021 9:32 AM Signed REVIEW OF SYSTEMS: General: The patient denies fatigue, denies weight loss, denies weight gain, denies feeling hot, and denies feelings of cold. Eyes: The patient denies glaucoma, denies eye injury/surgery, wears glasses or contacts. Ear/Nose/Throat: The patient NOTES allergies, denies hayfever, denies ear infections, and denies bloody noses. Cardiovascular: The patient denies chest pain, denies heart disease, denies high blood pressure,denies cardiac stent, denies prior heart attack, denies irregular heart beat, denies high cholesterol, denies poor circulation, denies heart failure, other cardiac issues, denies claudication, denies cold feet, denies peripheral arterial stent. Respiratory: The patient denies tuberculosis, denies pneumonia, denies frequent cough, denies pulmonary embolism, denies shortness of breath, and denies coughing up blood. Gastrointestinal: The patient denies difficulty swallowing, NOTES acid reflux, denies ulcers, denies vomiting, denies jaundice/hepatitis, denies gallbladder problems, denies black or tarry stools, denies hemorrhoids, denies bleeding from rectum, denies diverticulitis, denies constipation, denies diarrhea, denies loss of stool control, and denies hernias. Kidney/Bladder: The patient denies kidney stones, denies urine infections, and denies bloody urine. Skin: The patient denies a history of skin cancer, denies bleeding/changing moles, and denies a history of skin rash. Neurologic: The patient denies a history of epilepsy/convulsions , NOTES headaches, denies head/spinal injuries, and denies stroke/TIA. Psychiatric: The patient denies psychiatric medications, NOTES depression, and denies voices, denies substance abuse. Endocrine: The patient denies thyroid disorders, denies diabetes, and denies hormonal problems. Hematologic: The patient denies a history of bruising, denies bleeding, and denies anemia, denies blood clots. Infections: The patient denies a history of measles and mumps, denies rheumatic fever, and denies sexually transmitted diseases. Musculoskeletal: The patient denies back pain/injury, denies back problems, denies sciatica, denies knee/foot trouble, denies arthritis, or denies gout. When was patient's last Mammogram screening? 11/23/2021 Last Colonoscopy: 11/08/2021 Sybil Ordoñez 12/08/2021 10:38 AM Signed UNIVERSAL PROTOCOL / SAFETY CHECKLIST Procedure to be Performed: Right Ultrasound Guided Core Breast Biopsy Sign In: A Moment of CARE was completed. Personnel directly involved with the procedure wore the appropriate PPE (Personal Protective Equipment). Patient/Surrogate Stated/Verified: PATIENT VERIFIED(optional for EMERGENT procedures): Patient name, Date of , Relevant allergies, and The intended procedure Time Out Communication: Intended patient and procedure match the source documents. Consent documented and matches the intended procedure. Sign Out: SIGN OUT (optional for EMERGENT procedures): All specimen containers correctly labeled. Sybil Ordoñez 12/08/2021 10:56 AM Signed The following instructions are important for you related to your office visit today with the [facility] General Surgeons. Instructions After OFFICE BASED BREAST BIOPSY Please do not take aspirin or other blood thinners for the next few days. After the procedure, Steri-Strips and a dressing will be placed on your small incision. The dressing may be removed in two to three days after the procedure. The Steri-Strips should be left in place until they fall off. If you have bleeding from the biopsy site, hold pressure with a clean gauze. If the bleeding continues, contact our office immediately. I recommend taking Advil or Tylenol for the discomfort. You should wear a comfortable but somewhat tight fitting bra. If you have significant bruising, an ice pack may improve your discomfort. Please make an appointment to return to our office in weeks. If you note any additional difficulties, questions, or concerns, you should contact our office immediately @ [phone] and ask to be transferred to the General Surgery department. Evonne Moreno MD 12/08/2021 6:20 PM Signed HISTORY AND PHYSICAL - BREAST COMPLAINT Gwen Pool Greciamaryana 1965 REFERRING PHYSICIAN: Sharif Brown MD CHIEF COMPLAINT: Abnormal right breast imaging HPI: The patient is a 55 year old female with a complaint of an abnormal mammogram. The patient had a mammogram wi (more content not included)... Normal [facility] DIAGNOSTIC RTon 12-09-19 22 [facility] DIAGNOSTIC RT * * *Final Report* * * DATE OF EXAM: Dec 08 2021 11:34AM WRW 0626 - [facility] DIAGNOSTIC RT / PROCEDURE REASON: Abnormal finding on breast imaging * * * * Physician Interpretation * * * * RESULT: #[id number] - [facility] DIAGNOSTIC RT UNILATERAL RIGHT DIGITAL DIAGNOSTIC MAMMOGRAM WITH CAD: 12/08/2021 HISTORY: Abnormal Finding On Breast Imaging /Screening Mammogram-Patient reports NO symptoms. /priors available for comparison. RESULT: TECHNIQUE: The study was acquired using full field digital technology and interpreted from soft copy. Current study was also evaluated with a Computer Aided Detection (CAD). No prior exams were available for comparison. There are scattered fibroglandular elements in right breast. There is a biopsy clip in the right breast in the upper outer quadrant. IMPRESSION: POST PROCEDURE MAMMOGRAM FOR MARKER PLACEMENT Mirna parkinson/shawn:12/13/2021 08:06:33 Superintendent Custodian Janitor(s): Rosina Méndez [facility] Mammogram BI-RADS: Post-procedure mammogram for marker placement Multiple national specialty organizations have released breast cancer screening guidelines for women at average risk for developing breast cancer - guidelines that are based on both evidence and opinion, yet differ on when to start and how often to screen for breast cancer. With representation from Breast Imaging, Internal Medicine, Women's Health, Family Medicine, and Medical/Surgical Oncology, the [facility] has carefully reviewed the data and reached the following consensus: 1) All women should engage in shared decision-making with their providers to decide when to start and how often to screen; 2) All women should have the opportunity to start screening mammography at age 40; 3) For women ages 45-55, we recommend annual screening mammograms; 4) For women ages 55 and over, we support both the transition from an annual to a biennial interval if this aligns more with patient's values and preferences, or continuation with annual screening; 5) All women should discuss with their providers when to stop screening mammograms. Municipal Engineer: Shawn Transcribe Date/Time: Dec 08 2021 11:24A Dictated by: MIRNA MATT MD This examination was interpreted and the report reviewed and electronically signed by: MIRNA MATT MD on Dec 13 2021 8:06AM EST [id number] CN Normal [facility] SURGICAL PATHOLOGYon 022 CASE REPORT Normal [facility] Comment on above: Order Comment: Speci men Type: TISSUE SPECIMENOrdering Facility: [facility] Address: [address] [place] [address] Result Comment: Surg [facility] Pathology Report Case: [id number] Authorizing Provider: Evonne Moreno MD Collected: 12/08/2021 10:51 AM Ordering Location: General Surgery Received: 12/08/2021 03:59 PM Pathologist: Anushka Latham MD Specimen: BREAST CORE BIOPSY RIGHT, Right Breast Performed By: #### S ####[facility] LABORATORYCLIA [id number] [place] [address] [place] [facility] LABCLIA [id number] [address] [place] CLINICAL HISTORY Abnormal Mammogram Normal [facility] Comment on above: Order Comment: Speci men Type: TISSUE SPECIMENOrdering Facility: [facility] Address: [address] [place] [address] Performed By: #### S ####[facility] LABORATORYCLIA [id number] [address] LABCLIA [id number] [place] [address] [place] FINAL DIAGNOSIS Normal [facility] Comment on above: Order Comment: Speci men Type: TISSUE SPECIMENOrdering Facility: [facility] Address: [address] [place], [place] [id number] Result Comment: A. R ight breast, core biopsy: - Stromal fibrosis, apocrine cysts, and usual ductal hyperplasia. Performed By: #### S ####[facility] LABORATORYCLIA [id number] [address] LABCLIA [id number] [address] [place] FINAL PERFORMING LAB Normal [facility] Comment on above: Order Comment: Speci men Type: TISSUE SPECIMENOrdering Facility: [facility] Address: [address] [place] [address] Result Comment: Diag nostic interpretation performed at [facility], [address] [place] [address] CLIA# [id number] Radial Drill Press Set Up Operator: Jayshree Marin M.D. Performed By: #### S ####[facility] LABORATORYCLIA [id number] [address] LABCLIA [id number] [place] [address] [place] GROSS DESCRIPTION Normal [facility] Comment on above: Order Comment: Speci men Type: TISSUE SPECIMENOrdering Facility: [facility] Address: [address] [place] [address] Result Comment: A. B REAST CORE BIOPSY RIGHT Received in formalin labeled as right breast are multiple segments of cylindrical tissue aggregating to 1.0 x 0.7 x 0.1 cm, taylor-yellow and of a soft consistency. The specimen was removed from the patient at 10:51 AM on 12/08/2021. On the same day, the specimen was placed in formalin at an unspecified time. Totally submitted in formalin in one cassette. Gross examination performed at [facility], [facility], [place] [id number] FFS 12/08/2021 11:55 PM Performed By: #### S ####[facility] LABORATORYCLIA [id number] [place] [id number] [facility] LABCLIA [id number] [facility] [id number] US BREAST BIOPSY RIGHT (POC) SURG USE ONLYon 12-08-2021 [facility] Basophil percentageon 2021 Bilirubin [Mass/Vol] 0.40 mg/dL 0.20-1.00 [facility] Work Phone: Comment on above: For patients on eltr ombopag therapy, use of Dimension [place] TBIL is not recommended. Chloride [Moles/Vol] 107 mmol/L 98-107 [facility] Work Phone: Cholesterol [Mass/Vol] 185 mg/dL <200 [facility] Work Phone: Comment on above: <200 mg/dL Desirable 200-240 mg/dL Borderline >240 mg/dL High Risk Glucose [Mass/Vol] 89 mg/dL 74-[address] [facility] Work Phone: Potassium [Moles/Vol] 3.3 mmol/L 3.5-5.1 [facility] Work Phone: Protein [Mass/Vol] 8.0 g/dL 6.4-8.[address] [facility] Work Phone: Sodium [Moles/Vol] 138 mmol/L 136-[address] [facility] Work Phone: Triglyceride [Mass/Vol] 267 mg/dL <199 [facility] Work Phone: Comment on above: The drugs N-Acetylcy steine and Metamizole may falsely depress this assay.Serum Triglycerides Reference Interval Normal <150 mg/dL Borderline high 150 - 199 mg/dL High 200 - 499 mg/dL Very High > or = 500 mg/dL Laboratory - Chemistry and C hemistry - challengeon 12-06-2021 ALP [Catalytic activity/Vol] 90 U/L 45-117 [facility] Work Phone: ALT [Catalytic activity/Vol] 75 U/L 13-56 [facility] Work Phone: CO2 [Moles/Vol] 25.0 mmol/L 21.0-32.0 [facility] Work Phone: Globulin (S) [Mass/Vol] 4.1 g/dL 2.2-4.2 [facility] Work Phone: Urea nitrogen/Creatinine [Mass ratio] 20.4 mg/mg 10-20 [facility] Work Phone: No Panel Informationon 12-06 Estimated GFR (MDRD) Amer 75 mL/min >60 [facility] Work Phone: Comment on above: GFR Calc Estimated GFR (MDRD) Non-Af Amer 62 mL/min >60 [facility] Work Phone: Comment on above: Non- GFR Calc Thyroid Stimulating Hormone (TSH) 1.41 uIU/mL 0.358-3.74 [facility] Work Phone: Serum or plasma albumin osbaldo urement (mass/volume)on 12-06-2021 Albumin [Mass/Vol] 3.9 g/dL 3.2-5.[address] [facility] Work Phone: Serum or plasma albumin/glob ulin mass ratioon 12-06-2021 Albumin/Globulin [Mass ratio] 1.0 {ratio} 0.9-2.4 [facility] Work Phone: Serum or plasma calcium osbaldo urement (mass/volume)on 12-06-2021 Calcium [Mass/Vol] 9.4 mg/dL 8.5-10.[address] [facility] Work Phone: Serum or plasma cholesterol in HDL measurement (mass/volume)on 12-06-2021 Cholesterol in HDL [Mass/Vol] 35 mg/dL >40 [facility] Work Phone: Comment on above: The drugs N-Acetylcy steine and Metamizole may falsely depress this assay. Reference Range HDL <40 mg/dL Low HDL Cholesterol HDL >or= 60 mg/dL High HDL Cholesterol Serum or plasma cholesterol in VLDL measurement (mass/volume)on 12-06-2021 Cholesterol in VLDL [Mass/Vol] 53 mg/dL 5-40 [facility] Work Phone: Serum or plasma creatinine m easurement (mass/volume)on 12-06-2021 Creatinine [Mass/Vol] 0.98 mg/dL 0.55-1.02 [facility] Work Phone: Comment on above: The validity of the calculated GFR & GFRAA in patients over 70 years has not been determined. Clinical correlation is essential. Serum or plasma low density lipoprotein (LDL) cholesterol measurement (mass/volume)on 12-06-2021 Cholesterol in LDL [Mass/Vol] 97 mg/dL 0-130 [facility] Work Phone: Serum or plasma urea nitroge n measurement (mass/volume)on 12-06-2021 Urea nitrogen [Mass/Vol] 20 mg/dL 7-18 [facility] Work Phone: Thin prep Papanicolaou smear with manual screeningon 12-06-2021 Thin prep Papanicolaou smear with manual screening 45 U/L 15-37 [facility] Work Phone: Thin prep Papanicolaou smear with manual screening 6 5-15 [facility] Work Phone: Whole blood hemoglobin A1c/t otal hemoglobin ratio (mass fraction)on 12-06-2021 HbA1c (Bld) [Mass fraction] 5.5 % 3.8-5.6 [facility] Work Phone: Comment on above: Normal < 5.7 % Predi abetic 5.7 - 6.4 % Diabetic >or= 6.5 % Please note range changes. CNOVon 11-21-2021 CNOV Office Visit (GENSWS) ANGELIKA LOPEZGWEN J ([id number]) 1965 F Date Time Provider Department 11/21/21 2:00 PM YOMAIRA DAY During your visit today, we recorded the following information about you: Temperature Pulse Blood pressure Weight 97.7 degrees 101/minute 134/78 93.4 kg Height 1.575 m Yomaira Day PA-C 11/28/2021 9:04 AM Signed FOLLOW UP VISIT - ENDOSCOPY NAME: Gwen Wagoner Angelika Lopez CLINIC NO.: [id number] DATE OF SERVICE: 11/21/2021 : 1965 REFERRING PHYSICIAN: Sharif Brown MD, MD Hidalgo is a patient I am following for family history of colon cancer and need for screening colonoscopy. Dr. Moreno performed lower endoscopy on 11/08/21. The patient was found to have a 6 mm polyp in the sigmoid colon which was removed. Pathology demonstrated: FINAL DIAGNOSIS A. Colon, sigmoid polyp, biopsy: - Tubular adenoma. The patient notes no complaints since the procedure. VITALS: Last menstrual period 01/12/2018. General: patient is alert, cooperative, pleasant and in no acute distress On examination, the abdomen is benign. Assessment IMPRESSION: s/p colonoscopy with polypectomy, tubular adenoma <10 mm. Family history of colon cancer PLAN: The operative findings and pathology report were reviewed with the patient, and the patient has had the opportunity to ask questions and have questions answered. If the patient notes any problems or changes in bowel function, the patient should contact me immediately. Otherwise I recommend follow up endoscopy in 5 years. HM updated and recall letter generated. Patient verbalized understanding of all above and agreed with the plan Diagnoses: (D36.9) Tubular adenoma (primary encounter diagnosis) (Z80.0) Family history of colon cancer I spent a total of 23 minutes on the date of the service which included preparing to see the patient, [id number] patient care, completing clinical documentation, counseling and educating the patient/family/careg iver, independently interpreting results (not separately reported) and communicating results to the patient/family/careg iver. THERESA Bhagat PA-C 11/21/2021 2:17 PM Signed The following instructions are important for you related to your office visit today with the [facility] Surgeons. INSTRUCTIONS FOLLOWING A POLYP FOUND AT COLONOSCOPY You were found to have an adenomatous colon polyp. I recommend you undergo repeat endoscopy in 5 years based on polyp as well as family history of colon cancer. If you note bleeding, change in bowel habits, or other suspicious colon related symptoms before that time, those symptoms should be evaluated as necessary. If you have any difficulties or concerns, you should contact our office immediately. If you note any additional difficulties, questions, or concerns, you should contact our office immediately @ [phone] and ask to be transferred to the General Surgery department. Referring Provider: EVONNE MORENO [[id number]] Allergies As of Date: 11/21/2021 Noted Allergy Reaction ERYTHROMYCIN 08/10/2006 2 - Rash PENICILLINS 08/10/2006 2 - Rash Date Reviewed: 11/21/2021 Reviewed by: Yomaira Day PA-C - Fully Assessed Reason for Visit: Follow Up [171] Cmt: colonoscopy Primary Visit Diagnosis:Tubular adenoma [D36.9] Other Visit Diagnosis:Family history of colon cancer [Z80.0] Prescriptions as of 11/28/2021 - OXYBUTYNIN CHLORIDE ORAL Take 5 mg by mouth once daily. Oxybutynin chloride ER - BUPROPION HCL ORAL Take by mouth once daily. - famotidine (PEPCID) 20 mg tablet Take 20 mg by mouth as needed. - nortriptyline (PAMELOR) 10 mg capsule Take 10 mg by mouth daily at bedtime. 1-3 capsules as directed at dinner - VICODIN 5 MG-500 MG TAB Take 1-2 tablet's) every six(6) hours as needed for pain. Problem List As Of Date 11/21/2021 Noted Resolved UNSP ABNORMAL MAMMOGRAM [R92.8] 08/10/2006 Adj react-emotion NEC [F43.29] 12/28/2010 Marital conflict [Z63.0] 12/28/2010 Parent-child conflict [Z62.820] 12/28/2010 Encounter for screening colonoscopy [Z12.11] 03/24/2015 Epigastric pain [R10.13] 05/07/2015 Chest pain [R07.9] 05/07/2015 Cervical high risk HPV (human papillomavirus) t*10/21/2018 Other instructions from your clinician: The following instructions are important for you related to your office visit today with the [facility] Surgeons. INSTRUCTIONS FOLLOWING A POLYP FOUND AT COLONOSCOPY You were found to have an adenomatous colon polyp. I recommend you undergo repeat endoscopy in 5 years based on polyp as well as family history of colon cancer. If you note bleeding, change in bowel habits, or other suspicious colon related symptoms before that time, those symptoms should be evaluated as necessary. If you have any difficulties or concerns, you s (more content not included)... Normal [facility] Colonoscopyon 11-08-2021 Colonoscopy [facility] Gastrointestinal Endoscopy Patient Name: Gwen Lopez Procedure Date: 11/08/2021 7:26 AM Date of : 1965 Admit Type: Outpatient Age: 55 Gender: Female Note Status: Finalized Procedure: Colonoscopy Indications: Screening in patient at increased risk: Family history of 1st-degree relative with colorectal cancer Providers: Evonne Moreno MD Patient Profile: This is a 55 year old female. Refer to note in patient chart for documentation of history and physical. Last Colonoscopy: 5 years ago. Referring Physician: Yomaira Day (pa) (Referring MD) Medicines: Midazolam 6 mg IV, Fentanyl 100 micrograms IV, Diphenhydramine 50 mg IV Complications: No immediate complications. Requesting Provider: Procedure: Pre-Anesthesia Assessment: - Prior to the procedure, a History and Physical was performed, and patient medications and allergies were reviewed. The patient is competent. The risks and benefits of the procedure and the sedation options and risks were discussed with the patient. All questions were answered and informed consent was obtained. Patient identification and proposed procedure were verified by the physician and the nurse in the procedure room. Mental Status Examination: alert and oriented. CV Examination: normal. Prophylactic Antibiotics: The patient does not require prophylactic antibiotics. Prior Anticoagulants: The patient has taken no previous anticoagulant or antiplatelet agents. ASA Grade Assessment: II - A patient with mild systemic disease. After reviewing the risks and benefits, the patient was deemed in satisfactory condition to undergo the procedure. The anesthesia plan was to use moderate sedation / analgesia (conscious sedation). Immediately prior to administration of medications, the patient was re-assessed for adequacy to receive sedatives. The heart rate, respiratory rate, oxygen saturations, blood pressure, adequacy of pulmonary ventilation, and response to care were monitored throughout the procedure. The physical status of the patient was re-assessed after the procedure. After I obtained informed consent, the scope was passed under direct vision. Throughout the procedure, the patient's blood pressure, pulse, and oxygen saturations were monitored continuously. The Colonoscope was introduced through the anus and advanced to the cecum, identified by the appendiceal orifice, ileocecal valve and palpation. The colonoscopy was performed without difficulty. The patient tolerated the procedure well. The quality of the bowel preparation was good. The ileocecal valve, appendiceal orifice, and rectum were photographed. Moderate Sedation: Moderate (conscious) sedation was personally administered by the endoscopist. The following parameters were monitored: oxygen saturation, heart rate, blood pressure, and response to care. Total physician intraservice time was 16 minutes. The administration of moderate sedation was initiated at 07:38 AM. Findings: The perianal and digital rectal examinations were normal. A 6 mm polyp was found in the sigmoid colon. The polyp was sessile. The polyp was removed with a cold snare. Resection and retrieval were complete. The exam was otherwise without abnormality on direct and retroflexion views. Impression: - One 6 mm polyp in the sigmoid colon, removed with a cold snare. Resected and retrieved. - The examination was otherwise normal on direct and retroflexion views. Recommendation: - Discharge patient to home. - Resume previous diet. - Continue present medications. - Await pathology results. - Return to physician assistant refinery operator at appointment to be scheduled. - Resume anticoagulant at prior dose. - Patient has a contact number available for emergencies. The signs and symptoms of potential delayed complications were discussed with the patient. Return to normal activities tomorrow. Written discharge instructions were provided to the patient. - Repeat colonoscopy is recommended. The colonoscopy date will be determined after pathology results from today's exam become available for review. Procedure Code(s): --- Professional --- 04582, Colonoscopy, flexible; with removal of tumor(s), polyp(s), or other lesion(s) by snare technique G0500, Moderate sedation services provided by the same physician or other qualified health care professionals performing a gastrointestinal endoscopic service that sedation supports, requiring the presence of an independent trained observer to assist in the monitoring of the patient's level of consciousness and physiological status; initial 15 minutes of intra-service time; patient age 5 years or older (additional time may be reported with 34242, as appropriate) CPT copyright 2019 [employer]. All rights reserved. The codes documented in this report are preliminary and upon resident care supervisor (more content not included)... Normal [facility] HISTORY PHYSICALon HISTORY PHYSICAL HNO ID: [id number] Author: Evonne Moreno MD Service: General Surgery Author Type: Physician Type: HANDP Filed: 11/08/2021 7:27 AM Note Text: HISTORY AND PHYSICAL ? Gwen Pool Juan C 1965 ? REFERRING PHYSICIAN: Sharif Brown MD ? CHIEF COMPLAINT: Consult (colonoscopy) ? HPI: The patient is a 55 year old female referred for endoscopy. Gwen notes no colon complaints. Patient denies any change in bowel habits, weight changes, blood in stools, black tarry stools or abdominal pain. NOTES family history of colon cancer-mother was diagnosed in 2020. Patient notes her mother's physicians advised that all family members have colonoscopy at this time and stay on high-risk surveillance interval. ? The patient notes no upper GI complaints. ? Gwen has undergone prior endoscopy. Last colonoscopy 05/07/[address] Moreno with no concerning findings at that time. ? Patient denies chest pain, shortness of breath or recent hospitalizations. Denies problems with sedation in the past. ? ? PAST MEDICAL HISTORY PAST MEDICAL HISTORY Diagnosis Date - Migraine without aura ? ? ? PAST SURGICAL HISTORY PAST SURGICAL HISTORY Procedure Laterality Date - COLONOSCOPY ? 05/07/2015 - CRYOTHERAPY B/O ? 1997 approx ? cryo of cervix - EGD ? ? - EGD TRANSORAL BIOPSY SINGLE/MULTIPLE ? 05/07/2015 - NONE ? CURRENT MEDICATIONS Current Outpatient Medications Medication Sig - famotidine (PEPCID) 20 mg tablet Take 20 mg by mouth as needed. - VICODIN 5 MG-500 MG TAB Take 1-2 tablet's) every six(6) hours as needed for pain. - Omeprazole (PRILOSEC) 40 mg capsule Take 1 capsule by mouth once daily. (Patient not taking: Reported on 10/18/2021 ) - esomwyekuaiw-amd-tlp taminophen (PRODRIN) 65-20-325 mg tab Take by mouth. Take two tablets at onset of headaches (Patient not taking: Reported on 10/18/2021 ) - meloxicam (MOBIC) 7.5 mg tablet Take 7.5 mg by mouth once daily. 5-7 days for menstrual symptoms (Patient not taking: Reported on 10/18/2021 ) - nortriptyline (PAMELOR) 10 mg capsule Take 10 mg by mouth daily at bedtime. 1-3 capsules as directed at dinner ? No current facility-administere d medications for this visit. ? ? ALLERGIES: Erythromycin and Penicillins ? PERSONAL HISTORY: SOCIAL HISTORY Social History ? Tobacco Use - Smoking status: Current Every Day Smoker ? ? Packs/day: 0.50 ? ? Years: 3.00 ? ? Pack years: 1.50 ? ? Types: Cigarettes - Smokeless tobacco: Never Used Vaping Use - Vaping Use: Never used Substance Use Topics - Alcohol use: Yes ? ? Comment: Occasionally - Drug use: No ? FAMILY HISTORY: FAMILY HISTORY FAMILY HISTORY Problem Relation Age of Onset - Colon Cancer Mother ? - Cancer Father ? - Breast Cancer Sister ? - Breast Cancer Other ? ? cousin ? ? REVIEW OF SYMPTOMS: The review of systems data was entered by the nurse and reviewed by me ? Nursing Notes: Rita Kirkpatrick RN 10/18/2021 10:44 AM Signed REVIEW OF SYSTEMS: General: The patient denies fatigue, denies weight loss, denies weight gain, denies feeling hot, and denies feelings of cold. Eyes: The patient denies glaucoma, denies eye injury/surgery, does not wear glasses or contacts. Ear/Nose/Throat: The patient denies allergies, denies hayfever, denies ear infections, and denies bloody noses. Cardiovascular: The patient denies chest pain, denies heart disease, denies high blood pressure,denies cardiac stent, denies prior heart attack, denies irregular heart beat, denies high cholesterol, denies poor circulation, denies heart failure, other cardiac issues, denies claudication, denies cold feet, denies peripheral arterial stent. Respiratory: The patient denies tuberculosis, denies pneumonia, denies frequent cough, denies pulmonary embolism, denies shortness of breath, and denies coughing up blood. Gastrointestinal: The patient denies difficulty swallowing, denies acid reflux, denies ulcers, denies vomiting, denies jaundice/hepatitis, denies gallbladder problems, denies black or tarry stools, denies hemorrhoids, denies bleeding from rectum, denies diverticulitis, denies constipation, denies diarrhea, denies loss of stool control, and denies hernias. Kidney/Bladder: The patient denies kidney stones, denies urine infections, and denies bloody urine. Skin: The patient denies a history of skin cancer, denies bleeding/changing moles, and denies a history of skin rash. Neurologic: The patient denies a history of epilepsy/convulsions , NOTES headaches, denies head/spinal injuries, and denies stroke/TIA. Psychiatric: The patient denies psychiatric medications, denies depression, and denies voices, denies substance abuse. Endocrine: The patient denies thyroid disorders, denies diabetes, and denies hormonal problems. Hematologic: The patient denies a history of bruising, denies bleeding, and denies (more content not included)... Normal [facility] NURSING PROGon 11-08-2021 NURSING PROG HNO ID: [id number] Author: Evette Choi RN Service: ? Author Type: Registered Nurse Type: Nursing Progress Note Filed: 11/08/2021 8:11 AM Note Text: Dr Moreno post procedure said only 1 biopsy taken, patient can call office for results in 1 week, no post appointment needs set up at this time. Normal [facility] NURSING PROG HNO ID: [id number] Author: Evette Choi RN Service: ? Author Type: Registered Nurse Type: Nursing Progress Note Filed: 11/08/2021 8:10 AM Note Text: Patient received in PACU, on left side, respirations regular and unlabored, eyes open to verbal stimuli, abdomen soft and non distended, denies pain on nausea. Normal [facility] No Panel Informationon 11-08 [facility] SURGICAL PATHOLOGYon 022 CASE REPORT Normal [facility] Comment on above: Order Comment: Speci men Type: TISSUE SPECIMENOrdering Facility: [facility] Address: [address] [place] [address] Result Comment: Surg ica Pathology Report Case: [id number] Authorizing Provider: Evonne Moreno MD Collected: 11/08/2021 07:53 AM Ordering Location: Ambulatory Surgery Received: 11/08/2021 03:07 PM Pathologist: Tadeo Garcia MD Specimen: SIGMOID COLON POLYP, Sigmoid colon polyp Performed By: #### S ####[facility] LABCLIA [id number] [address] OF [place] FINAL DIAGNOSIS Normal [facility] Comment on above: Order Comment: Speci men Type: TISSUE SPECIMENOrdering Facility: [facility] Address: [address] [place], [place] [id number] Result Comment: A. C olon, sigmoid polyp, biopsy: - Tubular adenoma. Performed By: #### S ####[facility] LABCLIA [id number] [address] [place] FINAL PERFORMING LAB Normal [facility] Comment on above: Order Comment: Speci men Type: TISSUE SPECIMENOrdering Facility: [facility] Address: [address] [place], [place] [id number] Result Comment: Diag nostic interpretation performed at [facility], [address] [place] [address] CLIA# [id number] Radial Drill Press Set Up Operator: Harris Frost M.D. Performed By: #### S ####[facility] [id number] [address] OF [facility] Normal [facility] Comment on above: Order Comment: Speci men Type: TISSUE SPECIMENOrdering Facility: [facility] Address: [address] [place] [address] Result Comment: A. S IGMOID COLON POLYP. Received in formalin are two pieces of taylor, soft tissue aggregating to 0.8 x 0.2 x 0.1 cm. Totally submitted in one cassette. [place] [address] J 11/09/2021 1:35 AM Performed By: #### S ####[facility] [id number] [address] CNOVon 10-18-2021 CNOV Office Visit (GENSWS) GWEN MATHIAS ([id number]) 1965 F Date Time Provider Department 10/18/21 10:30 AM YOMAIRA DAY During your visit today, we recorded the following information about you: Temperature Pulse Blood pressure Weight 97.5 degrees 85/minute 130/82 92.6 kg Height 1.575 m Rita Kirkpatrick RN 10/18/2021 10:44 AM Signed REVIEW OF SYSTEMS: General: The patient denies fatigue, denies weight loss, denies weight gain, denies feeling hot, and denies feelings of cold. Eyes: The patient denies glaucoma, denies eye injury/surgery, does not wear glasses or contacts. Ear/Nose/Throat: The patient denies allergies, denies hayfever, denies ear infections, and denies bloody noses. Cardiovascular: The patient denies chest pain, denies heart disease, denies high blood pressure,denies cardiac stent, denies prior heart attack, denies irregular heart beat, denies high cholesterol, denies poor circulation, denies heart failure, other cardiac issues, denies claudication, denies cold feet, denies peripheral arterial stent. Respiratory: The patient denies tuberculosis, denies pneumonia, denies frequent cough, denies pulmonary embolism, denies shortness of breath, and denies coughing up blood. Gastrointestinal: The patient denies difficulty swallowing, denies acid reflux, denies ulcers, denies vomiting, denies jaundice/hepatitis, denies gallbladder problems, denies black or tarry stools, denies hemorrhoids, denies bleeding from rectum, denies diverticulitis, denies constipation, denies diarrhea, denies loss of stool control, and denies hernias. Kidney/Bladder: The patient denies kidney stones, denies urine infections, and denies bloody urine. Skin: The patient denies a history of skin cancer, denies bleeding/changing moles, and denies a history of skin rash. Neurologic: The patient denies a history of epilepsy/convulsions , NOTES headaches, denies head/spinal injuries, and denies stroke/TIA. Psychiatric: The patient denies psychiatric medications, denies depression, and denies voices, denies substance abuse. Endocrine: The patient denies thyroid disorders, denies diabetes, and denies hormonal problems. Hematologic: The patient denies a history of bruising, denies bleeding, and denies anemia, denies blood clots. Infections: The patient denies a history of measles and mumps, denies rheumatic fever, and denies sexually transmitted diseases. Musculoskeletal: The patient denies back pain/injury, denies back problems, denies sciatica, denies knee/foot trouble, denies arthritis, or denies gout. When was patient's last Mammogram screening? 2019 Last Colonoscopy: 2015 TAMMY Dumont PA-C 10/24/2021 4:46 PM Signed HISTORY AND PHYSICAL Gwen Wagoner Angelika Lopez 1965 REFERRING PHYSICIAN: Sharif Brown MD CHIEF COMPLAINT: Consult (colonoscopy) HPI: The patient is a 55 year old female referred for endoscopy. Gwen notes no colon complaints. Patient denies any change in bowel habits, weight changes, blood in stools, black tarry stools or abdominal pain. NOTES family history of colon cancer-mother was diagnosed in 2020. Patient notes her mother's physicians advised that all family members have colonoscopy at this time and stay on high-risk surveillance interval. The patient notes no upper GI complaints. Gwen has undergone prior endoscopy. Last colonoscopy 05/07/[address] Moreno with no concerning findings at that time. Patient denies chest pain, shortness of breath or recent hospitalizations. Denies problems with sedation in the past. PAST MEDICAL HISTORY Diagnosis Date - Migraine without aura PAST SURGICAL HISTORY Procedure Laterality Date - COLONOSCOPY 05/07/2015 - CRYOTHERAPY B/O 1997 approx cryo of cervix - EGD - EGD TRANSORAL BIOPSY SINGLE/MULTIPLE 05/07/2015 - NONE Current Outpatient Medications Medication Sig - famotidine (PEPCID) 20 mg tablet Take 20 mg by mouth as needed. - VICODIN 5 MG-500 MG TAB Take 1-2 tablet's) every six(6) hours as needed for pain. - Omeprazole (PRILOSEC) 40 mg capsule Take 1 capsule by mouth once daily. (Patient not taking: Reported on 10/18/2021 ) - noeyitjfadck-exy-bfk taminophen (PRODRIN) 65-20-325 mg tab Take by mouth. Take two tablets at onset of headaches (Patient not taking: Reported on 10/18/2021 ) - meloxicam (MOBIC) 7.5 mg tablet Take 7.5 mg by mouth once daily. 5-7 days for menstrual symptoms (Patient not taking: Reported on 10/18/2021 ) - nortriptyline (PAMELOR) 10 mg capsule Take 10 mg by mouth daily at bedtime. 1-3 capsules as directed at dinner No current facility-administere d medications for this visit. ALLERGIES: Erythromycin and Penicillins PERSONAL HISTORY: Social History Tobacco Use - Smoking status: Current Every Day Smoker Packs/day: 0.50 Years: 3.00 Pack ye (more content not included)... Normal [facility] 10-18-2021 [employer] [facility] [employer] Telephone ([employer]) ANGELIKA GWEN LOPEZ ([id number]) 1965 F Date Time Provider Department 10/18/21 YOMAIRA DAY During your visit today, we recorded the following information about you: Zonia Neves 10/18/2021 11:12 AM Signed 11/08 colon asc Lily Morse RN 11/14/2021 12:50 PM Signed ----- Message from Yomaira Day PA-C sent at 11/14/2021 10:39 AM EDT ----- Please schedule patient for virtual or office visit to review path results Martha Welch 11/14/2021 3:31 PM Signed Contacted patient, scheduled 11/21 @ 2:00 pm with . Martha Welch PSS Allergies As of Date: 10/18/2021 Noted Allergy Reaction ERYTHROMYCIN 08/10/2006 2 - Rash PENICILLINS 08/10/2006 2 - Rash Date Reviewed: 10/18/2021 Reviewed by: Yomaira Day PA-C - Fully Assessed Reason for Visit: 11/08 colon asc [Other] Procedure Follow Up [1139] Cmt: colonoscopy 11/08/2021 Primary Visit Diagnosis:Family history of colon cancer [Z80.0] Order(s):COLONOSCOPY SCREENING [GI51] Order #: [id number] FUTURE Prescriptions as of 11/14/2021 - famotidine (PEPCID) 20 mg tablet Take 20 mg by mouth as needed. - meloxicam (MOBIC) 7.5 mg tablet Take 7.5 mg by mouth once daily. 5-7 days for menstrual symptoms - nortriptyline (PAMELOR) 10 mg capsule Take 10 mg by mouth daily at bedtime. 1-3 capsules as directed at dinner - VICODIN 5 MG-500 MG TAB Take 1-2 tablet's) every six(6) hours as needed for pain. Problem List As Of Date 10/18/2021 Noted Resolved UNSP ABNORMAL MAMMOGRAM [R92.8] 08/10/2006 Adj react-emotion NEC [F43.29] 12/28/2010 Marital conflict [Z63.0] 12/28/2010 Parent-child conflict [Z62.820] 12/28/2010 Encounter for screening colonoscopy [Z12.11] 03/24/2015 Epigastric pain [R10.13] 05/07/2015 Chest pain [R07.9] 05/07/2015 Cervical high risk HPV (human papillomavirus) t*10/21/2018 Encounter Status:Closed by MARTHA WELCH on 11/14/21 Normal [facility] Vital Signs Date Time Vital Sign Value Performing Clinician Facility 03-09-2023 12:51-0500 Body height 157.[address] Sharif Brown Work Phone: [facility] 03-09-2023 12:51-0500 Body mass index (BMI) [Ratio] 36.6 kg/m2 Dr. Sharif Brown Work Phone: [facility] 03-09-2023 12:51-0500 Body temperature 98.2 [degF] Dr. Sharif Brown Work Phone: [facility] 03-09-2023 12:51-0500 Body weight 90.[address] Sharif Brown Work Phone: [facility] 03-09-2023 12:51-0500 Diastolic blood pressure 89 mm[Hg] Dr. Sharif Brown Work Phone: [facility] 03-09-2023 12:51-0500 Heart rate 88 /min Dr. Sharif Brown Work Phone: [facility] 03-09-2023 12:51-0500 Respiratory rate 16 /min Dr. Sharif Brown Work Phone: [facility] 03-09-2023 12:51-0500 SaO2% (BldA) [Mass fraction] 96 % Dr. Sharif Brown Work Phone: [facility] 03-09-2023 12:51-0500 Systolic blood pressure 151 mm[Hg] Dr. Sharif Brown Work Phone: [facility] 01-06-2023 08:47-0400 Body mass index (BMI) [Ratio] 38 kg/m2 Dr. Sharif Brown Work Phone: [facility] 01-06-2023 08:47-0400 Body temperature 97.7 [degF] Dr. Sharfi Brown Work Phone: [facility] 01-06-2023 08:47-0400 Body weight 94.[address] Sharif Brown Work Phone: [facility] 01-06-2023 08:47-0400 Diastolic blood pressure 95 mm[Hg] Dr. Sharif Brown Work Phone: [facility] 01-06-2023 08:47-0400 Heart rate 105 /min Dr. Sharif Brown Work Phone: [facility] 01-06-2023 08:47-0400 Respiratory rate 14 /min Dr. Sharif Brown Work Phone: [facility] 01-06-2023 08:47-0400 SaO2% (BldA) [Mass fraction] 95 % Dr. Sharif Brown Work Phone: [facility] 01-06-2023 08:47-0400 Systolic blood pressure 142 mm[Hg] Dr. Sharif Brown Work Phone: [facility] 06-27-2022 14:07-0500 Body temperature 97.9 [degF] Evonne Moreno MD Work Phone: [facility] 06-27-2022 14:07-0500 Body weight 98.16 kg Evonne Moreno MD Work Phone: [facility] 06-27-2022 14:07-0500 Diastolic blood pressure 82 mm[Hg] Evonne Moreno MD Work Phone: [facility] 06-27-2022 14:07-0500 Heart rate 91 /min Evonne Moreno MD Work Phone: [facility] 06-27-2022 14:07-0500 SaO2% (BldA) [Mass fraction] 96 % Evonne Moreno MD Work Phone: [facility] 06-27-2022 14:07-0500 Systolic blood pressure 128 mm[Hg] Evonne Moreno MD Work Phone: [facility] 12-15-2021 09:18-0400 Body height 157.5 cm Evonne Mroeno MD Work Phone: [facility] 12-15-2021 09:18-0400 Body temperature 97.9 [degF] Evonne Moreno MD Work Phone: [facility] 12-15-2021 09:18-0400 Body weight 90.72 kg Evonne Moreno MD Work Phone: [facility] 12-15-2021 09:18-0400 Diastolic blood pressure 78 mm[Hg] Evonne Moreno MD Work Phone: [facility] 12-15-2021 09:18-0400 Heart rate 96 /min Evonne Moreno MD Work Phone: [facility] 12-15-2021 09:18-0400 SaO2% (BldA) [Mass fraction] 97 % Evonne Moreno MD Work Phone: [facility] 12-15-2021 09:18-0400 Systolic blood pressure 118 mm[Hg] Evonne Moreno MD Work Phone: [facility] 12-08-2021 09:24-0400 Body height 157.5 cm Evonne Moreno MD Work Phone: [facility] 12-08-2021 09:24-0400 Body temperature 98.71 [degF] Evonne Moreno MD Work Phone: [facility] 12-08-2021 09:24-0400 Body weight 92.08 kg Evonne Moreno MD Work Phone: [facility] 12-08-2021 09:24-0400 Diastolic blood pressure 74 mm[Hg] Evonne Moreno MD Work Phone: [facility] 12-08-2021 09:24-0400 Heart rate 83 /min Evonne Moreno MD Work Phone: [facility] 12-08-2021 09:24-0400 SaO2% (BldA) [Mass fraction] 98 % Evonne Moreno MD Work Phone: [facility] 12-08-2021 09:24-0400 Systolic blood pressure 134 mm[Hg] Evonne Moreno MD Work Phone: [facility] 11-21-2021 14:04-0400 Body height 157.5 cm Yomaira Phuc PA-C Work Phone: [facility] 11-21-2021 14:04-0400 Body temperature 97.7 [degF] Yomaira Phuc PA-C Work Phone: [facility] 11-21-2021 14:04-0400 Body weight 93.44 kg Yomaira Phuc PA-C Work Phone: [facility] 11-21-2021 14:04-0400 Diastolic blood pressure 78 mm[Hg] Yomaira Phuc PA-C Work Phone: [facility] 11-21-2021 14:04-0400 Heart rate 101 /min Yomaira Phuc PA-C Work Phone: [facility] 11-21-2021 14:04-0400 SaO2% (BldA) [Mass fraction] 97 % Yomaira Phuc PA-C Work Phone: [facility] 11-21-2021 14:04-0400 Systolic blood pressure 134 mm[Hg] [place] PA-C Work Phone: [facility] 11-08-2021 08:30-0400 Diastolic blood pressure 81 mm[Hg] Evonne Moreno MD Work Phone: [facility] 11-08-2021 08:30-0400 Heart rate 64 /min Evonne Moreno MD Work Phone: [facility] 11-08-2021 08:30-0400 SaO2% (BldA) [Mass fraction] 97 % Evonne Moreno MD Work Phone: [facility] 11-08-2021 08:30-0400 Systolic blood pressure 121 mm[Hg] Evonne Moreno MD Work Phone: [facility] 11-08-2021 08:20-0400 Respiratory rate 16 /min Evonne Moreno MD Work Phone: [facility] 11-08-2021 07:10-0400 Body temperature 98.1 [degF] Evonne Moreno MD Work Phone: [facility] 10-18-2021 10:42-0400 Body height 157.5 cm Yomaira Phuc PA-C Work Phone: [facility] 10-18-2021 10:42-0400 Body temperature 97.5 [degF] [place]aira [place] PA-C Work Phone: [facility] 10-18-2021 10:42-0400 Body weight 92.63 kg Yomaira Phuc PA-C Work Phone: [facility] 10-18-2021 10:42-0400 Diastolic blood pressure 82 mm[Hg] [place]aira [place] PA-C Work Phone: [facility] 10-18-2021 10:42-0400 Heart rate 85 /min Yomaira Phuc PA-C Work Phone: [facility] 10-18-2021 10:42-0400 SaO2% (BldA) [Mass fraction] 98 % Yomaira [place] PA-C Work Phone: [facility] 10-18-2021 10:42-0400 Systolic blood pressure 130 mm[Hg] Yomaira Phuc PA-C Work Phone: [facility] Encounters Encounter Date Encounter Type Care Provider Facility Start: 10-06-2024 roberta Brown Facility:[facility] Start: 09-18-2024 End: 09-18-2024 ambulatory Sharif Brown Facility:[facility] Start: 03-09-2023 End: 03-09-[address] Sharif Brown Work Phone: [facility] Work Phone: Start: 03-09-2023 End: 03-09-[address] Sharif Brown Work Phone: [facility] Work Phone: Start: 03-09-2023 End: 03-09-[address] Sharif Brown Work Phone: [facility] Work Phone: Start: 01-06-2023 End: 01-06-[address] Sharif Brown Work Phone: [facility] Work Phone: Start: 06-27-2022 End: 06-28-2022 ambulatory EVONNE MORENO Facility:[facility] Start: 06-27-2022 End: 06-27-2022 Patient encounter procedure Evonne Moreno MD Work Phone: General Surgery Comment on above: Abnormal finding on breast imaging (Primary Dx) Start: 06-20-2022 End: 06-20-2022 ambulatory SHARIF BROWN Facility:[facility] Start: 06-20-2022 End: 06-20-2022 Subsequent hospital visit by physician Diagnostic Mammo [facility] Comment on above: Abnormal finding on breast imaging [R92.8] Start: 12-27-2021 ambulatory [facility] Start: 12-15-2021 End: 12-15-2021 ambulatory EVONNE MORENO Facility:[facility] Start: 12-15-2021 End: 12-15-2021 Patient encounter procedure Evonne Moreno MD Work Phone: General Surgery Comment on above: Abnormal finding on breast imaging (Primary Dx) Start: 12-08-2021 End: 12-08-2021 ambulatory EVONNE MORENO Facility:[facility] Start: 12-08-2021 End: 12-08-2021 ambulatory SHARIF BROWN Facility:[facility] Start: 12-08-2021 End: 12-08-2021 Subsequent hospital visit by physician Screen Mammo [facility] Comment on above: Abnormal finding on breast imaging [R92.8] Start: 12-08-2021 End: 12-08-2021 Patient encounter procedure Evonne Moreno MD Work Phone: General Surgery Comment on above: Abnormal finding on breast imaging (Primary Dx) Start: 12-06-2021 End: 12-06-2021 Patient encounter procedure [facility] Start: 11-25-2021 End: 11-25-2021 Patient encounter procedure [facility] Start: 11-23-2021 End: 11-23-2021 Patient encounter procedure [facility] Start: 11-21-2021 End: 11-21-2021 ambulatory EVONNE MORENO Facility:[facility] Start: 11-21-2021 End: 11-21-2021 Patient encounter procedure Yomaira Day PA-C Work Phone: General Surgery Comment on above: Tubular adenoma (Geri tiffanie Dx); Family history of colon cancer Start: 11-08-2021 End: 11-08-2021 ambulatory EVONNE MORENO Facility:[facility] Start: 11-08-2021 End: 11-08-2021 Subsequent hospital visit by physician Evonne Moreno MD Work Phone: Ambulatory Surgery Comment on above: Family history of co lion cancer [Z80.0] Start: 10-18-2021 Telephone encounter Yomaira boyle PA-C Work Phone: General Surgery Comment on above: 11/08 colon asc; Proc edure Follow Up (colonoscopy 11/08/2021) Start: 10-18-2021 End: 10-18-2021 ambulatory SHARIF BROWN Facility:[facility] Start: 10-18-2021 End: 10-18-2021 Patient encounter procedure Yomaira Day PA-C Work Phone: General Surgery Comment on above: Encounter for screen ing for malignant neoplasm of colon (Primary Dx); Family history of colon cancer Procedures Date Procedure Procedure Detail Performing Clinician Start: 03-09-[address] Sharif Brown Work Phone: Start: 06-20-2022 Diagnostic mammograp hy computer-aided detcj uni Evonne Moreno MD Work Phone: Start: 12-08-2021 US BREAST BIOPSY RIG HT (POC) SURG USE ONLY Evonne Moreno MD Work Phone: Start: 11-25-2021 Ultrasonography of breast Start: 11-23-2021 Screening mammography Start: 11-08-2021 Colon ca scrn not hi rsk ind [employer] Work Phone: Start: 11-08-2021 Colonoscopy Evonne bennett MD Work Phone: Start: 10-11-2018 Mammography [employer] Work Phone: Start: 05-07-2015 Colonoscopy [employer] Work Phone: Plan of Treatment Date Care Activity Detail Author Start: 11-09-2031 Colonoscopy COLONOSCOPY [facility] Start: 11-09-2031 COLORECTAL CANCER SCREENING COLORECTAL CANCER SCREENING [facility] Start: 11-13-2028 Urine microalbumin profile DTaP,Tdap,Td Vaccine (2 - Td or Tdap) [facility] Start: 11-08-2026 Colonoscopy COLONOSCOPY [facility] Start: 11-08-2026 COLORECTAL CANCER SCREENING COLORECTAL CANCER SCREENING [facility] Start: 05-07-2025 Colonoscopy COLONOSCOPY [facility] Start: 05-07-2025 COLORECTAL CANCER SCREENING COLORECTAL CANCER SCREENING [facility] Start: 10-12-2023 HPV TESTING HPV TESTING [facility] Start: 10-12-2023 PAP TESTING PAP TESTING [facility] Start: 12-29-2022 Covid-19 Vaccine () Covid-19 Vaccine () [facility] Start: 12-29-2022 Influenza vaccination Influenza Vacc ine (#1) [facility] Start: 12-25-2022 End: 07-27-2023 FRANCISCA SCREENING FRANCISCA SCREENING Radiology Routine Abnormal finding on breast imaging Expected: 12/25/2022, Expires: 07/27/2023 [facility] Work Phone: Comment on above: Expected: 12/25/2022 , Expires: 07/27/2023 Start: 06-17-2022 End: 01-14-2023 Diagnostic mammography computer-aided detcj uni [facility] DIAGNOSTIC RT Radiology Routine Abnormal finding on breast imaging Expected: 06/17/2022, Expires: 01/14/2023 [facility] Work Phone: Comment on above: Expected: 06/17/2022 , Expires: 01/14/2023 Start: 06-17-2022 End: 01-14-2023 Us breast uni real time with image limited US BREAST LTD RT Radiology Routine Abnormal finding on breast imaging Expected: 06/17/2022, Expires: 01/14/2023 [facility] Work Phone: Comment on above: Expected: 06/17/2022 , Expires: 01/14/2023 Start: 04-30-2022 DEPRESSION ASSESSMENT DEPRESSION ASS ESSMENT [facility] Start: 12-29-2021 Influenza vaccination C [facility] Start: 01-10-2021 COVID-19 VACCINE (3 - Booster for Moderna series) COVID-19 VACCINE (3 - Booster for Moderna series) [facility] Start: 10-05-2020 COVID-19 VACCINE (3 - Booster for Moderna series) COVID-19 VACCINE (3 - Booster for Moderna series) [facility] Start: 10-12-2019 Mammography [facility] Start: 2014 SHINGRIX VACCINE (1 of 2) SHINGRIX VACCINE (1 of 2) [facility] Start: 2009 COLOGUARD (FIT-DNA) COLOGUARD (FIT-D NA) [facility] Start: [address] COLONOGRAPHY [facility] Start: 2009 DIABETES SCREEN DIABETES SCREEN [facility] Start: 2009 Diabetes Screening Diabetes Screenin g [facility] Start: 2009 FECAL OCCULT BLOOD FECAL OCCULT BLOO D [facility] Start: 2009 Lipid 1996 panel - S rafat or Plasma Lipid Screening [facility] Start: 2009 LIPID SCREEN LIPID SCREEN [facility] Start: 2009 SIGMOIDOSCOPY [facility]IDOSCOPY [facility] Start: 01-01-1984 Urine microalbumin profile DTAP,TDAP,TD (1 - Tdap) [facility] Start: 1982 HEPATITIS C SCREENING HEPATITIS C SC REENING [facility] Start: 1982 HIV SCREENING HIV SCREENING [facility] Start: 1976 Adult depression screening assessment DEPRESSION SCREENING [facility] Start: 1970 PNEUMOCOCCAL (1 - PCV) PNEUMOCOCCAL (1 - PCV) [facility] Start: 1965 HEPATITIS B (1 of 3 - 3-dose series) HEPATITIS B (1 of 3 - 3-dose series) [facility] Start: 1965 Hepatitis B Vaccine (1 of 3 - 3-dose series) Hepatitis B Vaccine (1 of 3 - 3-dose series) [facility] End: 01-07-2023 Diagnostic mammography computer-aided detcj [facility] DIAGNOSTIC RT Radiology Routine Abnormal finding on breast imaging 1 Occurrences starting 12/08/2021 until 01/07/2023 [facility] Work Phone: Comment on above: 1 Occurrences starti ng 12/08/2021 until 01/07/2023 End: 12-08-2021 Diagnostic mammography computer-aided detcj uni [facility] Work Phone: Comment on above: 1 Occurrences starti ng 12/08/2021 until 12/08/2021 SURGICAL PATHOLOGY [facility] Work Phone: Comment on above: Release Upon Orderin g for 1 Occurrences starting 11/08/2021, 1 completed SURGICAL PATHOLOGY SURGICAL PATH OLOGY Lab Routine Abnormal finding on breast imaging 12/08/2021 10:51 AM EDT [facility] Work Phone: [facility] Payers Date Payer Category Payer Self-pay [id number] [phone] [id number] 2024 Unknown [id number] 2019 Unknown [employer] PPO OOS [id number] 2019-Present [phone] [address] [place] [address] PPO [id number] 2019 Unknown [employer] PPO OOS [id number] 2019-Present [phone] [address] [place] [address] PPO [id number] 1965 Unknown [id number] 1959 Unknown [id number] Private Health Insurance [id number] Unknown [id number] Unknown [id number] Unknown [id number] Social History Date Type [facility]ail [facility] Smokes tobacco daily [facility] End: 12-01-2021 History of tobacco use Cigarette Smoker [facility] Start: 10-18-2021 End: 12-15-2021 Alcohol intake Current drinker of alcohol (finding) [facility] Start: 1965 Sex Assigned At Not on file C [facility] Start: 10-08-2021 End: 12-15-2021 Exposure to SARS-CoV-2 (event) Not sure [facility] Start: 12-14-2016 End: 03-09-2023 Tobacco smoking status NHIS Unknown if ever smoked [facility] Start: 1965 Sex Assigned At Female [facility] Start: 12-08-2021 [facility] End: 12-01-2021 History of tobacco use Current smoker [facility] Start: 12-08-2021 End: 05-26-2022 Cigarettes smoked current (pack per day) - Reported 0.5 [facility] Start: 12-08-2021 Tobacco use and exposure Smokeless tobacco non-user [facility] Start: 12-15-2021 End: 05-26-2022 Tobacco use panel [facility] National Score (1-10 0), lower number is lower risk 50 [facility] Clinical Notes 10-18-2021 to 06-27-2022 Evonne Moreno MD - 06/27/2022 7:49 PM Marlyn Younga, Mammo Tech - 06/20/2022 10:00 AM Mike Moreno MD - 12/15/2021 9:20 AM Arlene Moreno MD - 12/08/2021 6:14 PM EDT Note Date & Type Note Facility 06-27-2022 Note HNO ID: [id number] Author: Evonne Moreno MD Service: ? Author Type: Physician Type: Progress Notes Filed: 06/27/2022 7:52 PM Note Text: FOLLOW UP VISIT - POST RIGHT ULTRASOUND GUIDED CORE BIOPSY NAME: Gwen Pool [facility] NO.: [id number] DATE OF SERVICE: June 27, 2022 : 1965 REFERRING PHYSICIAN: Sharif Brown MD, MD Gwen is a patient I am following for abnormal right breast imaging. The patient is a 55 year old female with a complaint of an abnormal mammogram. The patient had a mammogram with ultrasound on November 25, 2021 which demonstrated a vague abnormality in the right upper outer breast along with a 4 x 5 mm hypoechoic complex solid lesion at the 10 o'clock position 5 to 6 cm from the nipple. Biopsy was recommended. The patient denies a history of breast masses. She occasionally perform a self breast exam routinely. She notes no skin changes. She denies nipple discharge. She notes no axillary masses. She notes a family history of breast problems with multiple second-degree relatives with a history of breast cancer. She notes no significant breast trauma or breast difficulties in the past. The patient is being seen by me at the request of Dr. Sharif Brown MD, MD for my opinion and advice regarding abnormal right breast imaging. I performed a right side ultrasound guided core biopsy for her abnormal mammogram on December 08, 2021. The pathology returned as: FINAL DIAGNOSIS A. Right breast, core biopsy: - Stromal fibrosis, apocrine cysts, and usual ductal hyperplasia. The patient noted slight bruising since the procedure. He returns today for 6-month follow-up examination. She notes no current complaints except for an occasional twinge of discomfort for what she believes to be the location of the biopsy site in her right breast. She had follow-up mammogram on June 20, 2022. This demonstrated: IMPRESSION: BENIGN FINDING There is no mammographic evidence of malignancy. Return to annual mammogram screening schedule is recommended. VITALS: Blood pressure 128/82, pulse 91, temperature 36.6 ?C (97.9 ?F), weight 98.2 kg (216 lb 6.4 oz), last menstrual period 01/12/2018, SpO2 96 %. On examination, the right side breast biopsy site is clean, dry, and intact. Her bilateral axillary exam is negative. Her bilateral breast exam demonstrates multiple small benign feeling nodules with no suspicious areas. Assessment IMPRESSION: status post ultrasound guided core biopsy for right side breast intraductal hyperplasia without atypia apocrine cyst and stromal fibrosis. PLAN: If Gwen notes any problems, she should contact me immediately. I reminded her about the importance of self - breast exam. I recommend she perform monthly self breast exams. If any palpable abnormalities, change in breast exam, or any difficulties are noted, she is to contact my office immediately. I generally recommend follow up bilateral mammogram in 6 months. Diagnoses: (R92.8) Abnormal finding on breast imaging (primary encounter diagnosis) Return to Clinic: The patient is instructed to follow-up with me in 6 months, you should obtain a mammogram prior to this follow up visit. Evonne Moreno MD [facility] 06-27-2022 History of Presen t illness Narrative FOLLOW UP VISIT - POST RIGHT ULTRASOUND GUIDED CORE BIOPSY NAME: Gwen Pool [facility] NO.: [id number] DATE OF SERVICE: June 27, 2022 : 1965 REFERRING PHYSICIAN: Sharif Brown MD, Gwen is a patient I am following for abnormal right breast imaging. The patient is a 55 year old female with a complaint of an abnormal mammogram. The patient had a mammogram with ultrasound on November 25, 2021 which demonstrated a vague abnormality in the right upper outer breast along with a 4 x 5 mm hypoechoic complex solid lesion at the 10 o'clock position 5 to 6 cm from the nipple. Biopsy was recommended. The patient denies a history of breast masses. She occasionally perform a self breast exam routinely. She notes no skin changes. She denies nipple discharge. She notes no axillary masses. She notes a family history of breast problems with multiple second-degree relatives with a history of breast cancer. She notes no significant breast trauma or breast difficulties in the past. The patient is being seen by me at the request of Dr. Sharif Brown MD, MD for my opinion and advice regarding abnormal right breast imaging. I performed a right side ultrasound guided core biopsy for her abnormal mammogram on December 08, 2021. The pathology returned as: FINAL DIAGNOSIS A. Right breast, core biopsy: - Stromal fibrosis, apocrine cysts, and usual ductal hyperplasia. The patient noted slight bruising since the procedure. He returns today for 6-month follow-up examination. She notes no current complaints except for an occasional twinge of discomfort for what she believes to be the location of the biopsy site in her right breast. She had follow-up mammogram on June 20, 2022. This demonstrated: IMPRESSION: BENIGN FINDING There is no mammographic evidence of malignancy. Return to annual mammogram screening schedule is recommended. VITALS: Blood pressure 128/82, pulse 91, temperature 36.6 C (97.9 F), weight 98.2 kg (216 lb 6.4 oz), last menstrual period 01/12/2018, SpO2 96 %. On examination, the right side breast biopsy site is clean, dry, and intact. Her bilateral axillary exam is negative. Her bilateral breast exam demonstrates multiple small benign feeling nodules with no suspicious areas. Assessment IMPRESSION: status post ultrasound guided core biopsy for right side breast intraductal hyperplasia without atypia apocrine cyst and stromal fibrosis. PLAN: If Gwen notes any problems, she should contact me immediately. I reminded her about the importance of self - breast exam. I recommend she perform monthly self breast exams. If any palpable abnormalities, change in breast exam, or any difficulties are noted, she is to contact my office immediately. I generally recommend follow up bilateral mammogram in 6 months. Diagnoses: (R92.8) Abnormal finding on breast imaging (primary encounter diagnosis) Return to Clinic: The patient is instructed to follow-up with me in 6 months, you should obtain a mammogram prior to this follow up visit. Evonne Moreno MD documented in this encounter [facility] 06-20-2022 Note HNO ID: [id number] Author: Po Marks Service: ? Author Type: Firer Low Pressure Type: Progress Notes Filed: 06/20/2022 10:21 AM Note Text: Radiology Service Progress Note PATIENT NAME: Gwen Lopez DATE OF SERVICE: June 20, 2022 TIME: 10:08 AM PATIENT IDENTITY VERIFICATION COMPLETED USING TWO (2) IDENTIFIERS: Name and Date of confirmed by patient verbally. FALL SCREENING: Has the patient had 2 falls in the last year or 1 fall with injury or currently using an Ambulatory Assistive Device (Walker, Cane, Wheelchair, Crutches, etc.)? No PATIENT GENDER DATA: Female. status: : No status: NO. PATIENT RELEVANT IMPLANT DATA REVIEWED: Not Applicable RADIOLOGY DEPARTMENT: Mammography PERIPHERAL IV DATA: Not applicable SIGNED BY: Po Marks June 20, 2022 10:08 AM [facility] 06-20-2022 History of Presen t illness Narrative Radiology Service Progress Note PATIENT NAME: Gwen Lopez DATE OF SERVICE: June 20, 2022 TIME: 10:08 AM PATIENT IDENTITY VERIFICATION COMPLETED USING TWO (2) IDENTIFIERS: Name and Date of confirmed by patient verbally. FALL SCREENING: Has the patient had 2 falls in the last year or 1 fall with injury or currently using an Ambulatory Assistive Device (Walker, Cane, Wheelchair, Crutches, etc.)? No PATIENT GENDER DATA: Female. status: : No status: NO. PATIENT RELEVANT IMPLANT DATA REVIEWED: Not Applicable RADIOLOGY DEPARTMENT: Mammography PERIPHERAL IV DATA: Not applicable SIGNED BY: Heidi Markso Tech June 20, 2022 10:08 AM documented in this encounter [facility] 12-15-2021 Note HNO ID: [id number] Author: Evonne Moreno MD Service: ? Author Type: Physician Type: Progress Notes Filed: 12/15/2021 10:34 AM Note Text: FOLLOW UP VISIT - POST RIGHT ULTRASOUND GUIDED CORE BIOPSY NAME: Gwen Pool [facility] NO.: [id number] DATE OF SERVICE: 12/15/2021 : 1965 REFERRING PHYSICIAN: Sharif Brown MD, MD Gwen is a patient I am following for abnormal right breast imaging. The patient is a 55 year old female with a complaint of an abnormal mammogram. The patient had a mammogram with ultrasound on November 25, 2021 which demonstrated a vague abnormality in the right upper outer breast along with a 4 x 5 mm hypoechoic complex solid lesion at the 10 o'clock position 5 to 6 cm from the nipple. Biopsy was recommended. The patient denies a history of breast masses. She occasionally perform a self breast exam routinely. She notes no skin changes. She denies nipple discharge. She notes no axillary masses. She notes a family history of breast problems with multiple second-degree relatives with a history of breast cancer. She notes no significant breast trauma or breast difficulties in the past. The patient is being seen by me at the request of Dr. Sharif Brown MD, MD for my opinion and advice regarding abnormal right breast imaging. I performed a right side ultrasound guided core biopsy for her abnormal mammogram on December 08, 2021. The pathology returned as: FINAL DIAGNOSIS A. Right breast, core biopsy: - Stromal fibrosis, apocrine cysts, and usual ductal hyperplasia. The patient notes slight bruising since the procedure. VITALS: Last menstrual period 01/12/2018. On examination, the right side breast biopsy site is clean, dry, and intact. There is slight bruising of the site. Assessment IMPRESSION: status post ultrasound guided core biopsy for right side breast intraductal hyperplasia without atypia apocrine cyst and stromal fibrosis. PLAN: If Gwen notes any problems, she should contact me immediately. I reminded her about the importance of self - breast exam. I recommend she perform monthly self breast exams. If any palpable abnormalities, change in breast exam, or any difficulties are noted, she is to contact my office immediately. I generally recommend follow up unilateral mammogram and ultrasound 6 months following biopsy. Diagnoses: (R92.8) Abnormal finding on breast imaging (primary encounter diagnosis) Return to Clinic: The patient is instructed to follow-up with me in 6 months, you should obtain a mammogram and ultrasound prior to this follow up visit. Evonne Moreno MD [facility] 12-15-2021 History of Presen t illness Narrative FOLLOW UP VISIT - POST RIGHT ULTRASOUND GUIDED CORE BIOPSY NAME: Gwen Pool [facility] NO.: [id number] DATE OF SERVICE: 12/15/2021 : 1965 REFERRING PHYSICIAN: Sharif Brown MD, MD Gwen is a patient I am following for abnormal right breast imaging. The patient is a 55 year old female with a complaint of an abnormal mammogram. The patient had a mammogram with ultrasound on November 25, 2021 which demonstrated a vague abnormality in the right upper outer breast along with a 4 x 5 mm hypoechoic complex solid lesion at the 10 o'clock position 5 to 6 cm from the nipple. Biopsy was recommended. The patient denies a history of breast masses. She occasionally perform a self breast exam routinely. She notes no skin changes. She denies nipple discharge. She notes no axillary masses. She notes a family history of breast problems with multiple second-degree relatives with a history of breast cancer. She notes no significant breast trauma or breast difficulties in the past. The patient is being seen by me at the request of Dr. Sharif Brown MD, MD for my opinion and advice regarding abnormal right breast imaging. I performed a right side ultrasound guided core biopsy for her abnormal mammogram on December 08, 2021. The pathology returned as: FINAL DIAGNOSIS A. Right breast, core biopsy: - Stromal fibrosis, apocrine cysts, and usual ductal hyperplasia. The patient notes slight bruising since the procedure. VITALS: Last menstrual period 01/12/2018. On examination, the right side breast biopsy site is clean, dry, and intact. There is slight bruising of the site. Assessment IMPRESSION: status post ultrasound guided core biopsy for right side breast intraductal hyperplasia without atypia apocrine cyst and stromal fibrosis. PLAN: If Gwen notes any problems, she should contact me immediately. I reminded her about the importance of self - breast exam. I recommend she perform monthly self breast exams. If any palpable abnormalities, change in breast exam, or any difficulties are noted, she is to contact my office immediately. I generally recommend follow up unilateral mammogram and ultrasound 6 months following biopsy. Diagnoses: (R92.8) Abnormal finding on breast imaging (primary encounter diagnosis) Return to Clinic: The patient is instructed to follow-up with me in 6 months, you should obtain a mammogram and ultrasound prior to this follow up visit. Evonne Moreno MD documented in this encounter [facility] 12-08-2021 Note HNO ID: [id number] Author: Evonne Moreno MD Service: ? Author Type: Physician Type: Progress Notes Filed: 12/08/2021 6:20 PM Note Text: HISTORY AND PHYSICAL - BREAST COMPLAINT Gwen Lopez 1965 REFERRING PHYSICIAN: Sharif Brown MD CHIEF COMPLAINT: Abnormal right breast imaging HPI: The patient is a 55 year old female with a complaint of an abnormal mammogram. The patient had a mammogram with ultrasound on November 25, 2021 which demonstrated a vague abnormality in the right upper outer breast along with a 4 x 5 mm hypoechoic complex solid lesion at the 10 o'clock position 5 to 6 cm from the nipple. Biopsy was recommended. The patient denies a history of breast masses. She occasionally perform a self breast exam routinely. She notes no skin changes. She denies nipple discharge. She notes no axillary masses. She notes a family history of breast problems with multiple second-degree relatives with a history of breast cancer. She notes no significant breast trauma or breast difficulties in the past. The patient is being seen by me today at the request of Dr. Sharif Brown MD, MD for my opinion and advice regarding abnormal right breast imaging. PAST MEDICAL HISTORY Diagnosis Date Acid reflux Migraine without aura Overactive bladder PAST SURGICAL HISTORY Procedure Laterality Date COLONOSCOPY 05/07/2015 COLONOSCOPY SCREENING 11/08/2021 CRYOTHERAPY B/O 1997 approx cryo of cervix EGD EGD TRANSORAL BIOPSY SINGLE/MULTIPLE 05/07/2015 Current Outpatient Medications Medication Sig Dispense Refill OXYBUTYNIN CHLORIDE ORAL Take 5 mg by mouth once daily. Oxybutynin chloride ER BUPROPION HCL ORAL Take by mouth once daily. famotidine (PEPCID) 20 mg tablet Take 20 mg by mouth as needed. VICODIN 5 MG-500 MG TAB Take 1-2 tablet's) every six(6) hours as needed for pain. 0 nortriptyline (PAMELOR) 10 mg capsule Take 10 mg by mouth daily at bedtime. 1-3 capsules as directed at dinner No current facility-administered medications for this visit. ALLERGIES: Erythromycin and Penicillins PERSONAL HISTORY: Social History Tobacco Use Smoking status: Former Packs/day: 0.50 Years: 3.00 Pack years: 1.50 Types: Cigarettes Quit date: 12/01/2021 Years since quittin.0 Smokeless tobacco: Never Vaping Use Vaping Use: Never used Substance Use Topics Alcohol use: Yes Comment: Occasionally Drug use: No FAMILY HISTORY: FAMILY HISTORY Problem Relation Age of Onset Colon Cancer Mother Cancer Father Breast Cancer Sister Breast Cancer Other cousin REVIEW OF SYMPTOMS: The review of systems data was entered by the nurse and reviewed by wy Nursing Notes: Sybil Ordoñez 12/08/2021 9:32 AM Signed REVIEW OF SYSTEMS: General: The patient denies fatigue, denies weight loss, denies weight gain, denies feeling hot, and denies feelings of cold. Eyes: The patient denies glaucoma, denies eye injury/surgery, wears glasses or contacts. Ear/Nose/Throat: The patient NOTES allergies, denies hayfever, denies ear infections, and denies bloody noses. Cardiovascular: The patient denies chest pain, denies heart disease, denies high blood pressure,denies cardiac stent, denies prior heart attack, denies irregular heart beat, denies high cholesterol, denies poor circulation, denies heart failure, other cardiac issues, denies claudication, denies cold feet, denies peripheral arterial stent. Respiratory: The patient denies tuberculosis, denies pneumonia, denies frequent cough, denies pulmonary embolism, denies shortness of breath, and denies coughing up blood. Gastrointestinal: The patient denies difficulty swallowing, NOTES acid reflux, denies ulcers, denies vomiting, denies jaundice/hepatitis, denies gallbladder problems, denies black or tarry stools, denies hemorrhoids, denies bleeding from rectum, denies diverticulitis, denies constipation, denies diarrhea, denies loss of stool control, and denies hernias. Kidney/Bladder: The patient denies kidney stones, denies urine infections, and denies bloody urine. Skin: The patient denies a history of skin cancer, denies bleeding/changing moles, and denies a history of skin rash. Neurologic: The patient denies a history of epilepsy/convulsions, NOTES headaches, denies head/spinal injuries, and denies stroke/TIA. Psychiatric: The patient denies psychiatric medications, NOTES depression, and denies voices, denies substance abuse. Endocrine: The patient denies thyroid disorders, denies diabetes, and denies hormonal problems. Hematologic: The patient denies a history of bruising, denies bleeding, and denies anemia, denies blood clots. Infections: The patient denies a history of measles and mumps, denies rheumatic fever, and denies sexually transmitted diseases. Musculoskeletal: The patient denies back pain/injury, denies back problems, denies sciatica, denies knee/foot trouble, denies arthritis, (more content not included)... [facility] 12-08-2021 History of Presen t illness Narrative HISTORY AND PHYSICAL - BREAST COMPLAINT Gwen Lopez 1965 REFERRING PHYSICIAN: Sharif Brown MD CHIEF COMPLAINT: Abnormal right breast imaging HPI: The patient is a 55 year old female with a complaint of an abnormal mammogram. The patient had a mammogram with ultrasound on November 25, 2021 which demonstrated a vague abnormality in the right upper outer breast along with a 4 x 5 mm hypoechoic complex solid lesion at the 10 o'clock position 5 to 6 cm from the nipple. Biopsy was recommended. The patient denies a history of breast masses. She occasionally perform a self breast exam routinely. She notes no skin changes. She denies nipple discharge. She notes no axillary masses. She notes a family history of breast problems with multiple second-degree relatives with a history of breast cancer. She notes no significant breast trauma or breast difficulties in the past. The patient is being seen by me today at the request of Dr. Sharif Brown MD, MD for my opinion and advice regarding abnormal right breast imaging. PAST MEDICAL HISTORY Diagnosis Date Acid reflux Migraine without aura Overactive bladder PAST SURGICAL HISTORY Procedure Laterality Date COLONOSCOPY 05/07/2015 COLONOSCOPY SCREENING 11/08/2021 CRYOTHERAPY B/O 1997 approx cryo of cervix EGD EGD TRANSORAL BIOPSY SINGLE/MULTIPLE 05/07/2015 Current Outpatient Medications Medication Sig Dispense Refill OXYBUTYNIN CHLORIDE ORAL Take 5 mg by mouth once daily. Oxybutynin chloride ER BUPROPION HCL ORAL Take by mouth once daily. famotidine (PEPCID) 20 mg tablet Take 20 mg by mouth as needed. VICODIN 5 MG-500 MG TAB Take 1-2 tablet's) every six(6) hours as needed for pain. 0 nortriptyline (PAMELOR) 10 mg capsule Take 10 mg by mouth daily at bedtime. 1-3 capsules as directed at dinner No current facility-administered medications for this visit. ALLERGIES: Erythromycin and Penicillins PERSONAL HISTORY: Social History Tobacco Use Smoking status: Former Packs/day: 0.50 Years: 3.00 Pack years: 1.50 Types: Cigarettes Quit date: 12/01/2021 Years since quittin.0 Smokeless tobacco: Never Vaping Use Vaping Use: Never used Substance Use Topics Alcohol use: Yes Comment: Occasionally Drug use: No FAMILY HISTORY: FAMILY HISTORY Problem Relation Age of Onset Colon Cancer Mother Cancer Father Breast Cancer Sister Breast Cancer Other cousin REVIEW OF SYMPTOMS: The review of systems data was entered by the nurse and reviewed by me Nursing Notes: Sybil Owenz 12/08/2021 9:32 AM Signed REVIEW OF SYSTEMS: General: The patient denies fatigue, denies weight loss, denies weight gain, denies feeling hot, and denies feelings of cold. Eyes: The patient denies glaucoma, denies eye injury/surgery, wears glasses or contacts. Ear/Nose/Throat: The patient NOTES allergies, denies hayfever, denies ear infections, and denies bloody noses. Cardiovascular: The patient denies chest pain, denies heart disease, denies high blood pressure,denies cardiac stent, denies prior heart attack, denies irregular heart beat, denies high cholesterol, denies poor circulation, denies heart failure, other cardiac issues, denies claudication, denies cold feet, denies peripheral arterial stent. Respiratory: The patient denies tuberculosis, denies pneumonia, denies frequent cough, denies pulmonary embolism, denies shortness of breath, and denies coughing up blood. Gastrointestinal: The patient denies difficulty swallowing, NOTES acid reflux, denies ulcers, denies vomiting, denies jaundice/hepatitis, denies gallbladder problems, denies black or tarry stools, denies hemorrhoids, denies bleeding from rectum, denies diverticulitis, denies constipation, denies diarrhea, denies loss of stool control, and denies hernias. Kidney/Bladder: The patient denies kidney stones, denies urine infections, and denies bloody urine. Skin: The patient denies a history of skin cancer, denies bleeding/changing moles, and denies a history of skin rash. Neurologic: The patient denies a history of epilepsy/convulsions, NOTES headaches, denies head/spinal injuries, and denies stroke/TIA. Psychiatric: The patient denies psychiatric medications, NOTES depression, and denies voices, denies substance abuse. Endocrine: The patient denies thyroid disorders, denies diabetes, and denies hormonal problems. Hematologic: The patient denies a history of bruising, denies bleeding, and denies anemia, denies blood clots. Infections: The patient denies a history of measles and mumps, denies rheumatic fever, and denies sexually transmitted diseases. Musculoskeletal: The patient denies back pain/injury, denies back problems, denies sciatica, denies knee/foot trouble, denies arthritis, or denies gout. When was patient's last Mammogram screening? 11/23/2021 Last Colonoscopy: 11/08/2021 Sybil Ordoñez PHYSICAL EXAMINATION: General: The patient is 55 year old female, well nourished, well hydrated in no acute distress. The patient is oriented to time, place, and person. VITALS: Blood pressure 134/74, pulse 83, temperature 37.1 C (98.7 F), height 157.5 cm (5' 2), weight 92.1 kg (203 lb), last menstrual period 01/12/2018, SpO2 98 %. Body mass index is 37.13 kg/m . HEENT: Normal cephalic, ataumatic, pupils are equally round, sclera are anicteric, mucous membranes are moist, oropharynx is clear. Neck has no masses, asymmetry or lymphadenopathy. Thyroid is unremarkable. Respiratory: Clear to auscultation and percussion. Normal respiratory excursion and pattern. Cardiac: Examination is regular rate and rhythm. Abdominal exam: Soft, nontender, with no palpable masses. No hepatosplenomegaly. No palpable hernias. Rectal exam: exam deferred Extremities: no clubbing, cyanosis or edema. No adenopathy. Breast: Visual inspection reveals no retractions, nipple inversion, or skin changes. Palpation of the right breast reveals no dominant or suspicious masses, but multiple benign-feeling nodules. Palpation of the left breast reveals no dominant or suspicious masses, but multiple benign-feeling nodules. Axillary exam demonstrates no suspicious masses in either the left or right axilla. There is no nipple discharge expressed from either the left or right breast. LABORATORY VALUES: As Noted RADIOLOGIC STUDIES: As Noted PROCEDURE: Ultrasound Guided Core Breast Biopsy The risks, benefits and anticipated outcomes of the procedure, the risks and benefits of the alternatives to the procedure, and the roles and tasks of the personnel to be involved, were discussed with the patient, and the patient consents to the procedure and agrees to proceed. After explaining the procedure and consent was obtained,Gwen was positioned. The abnormality in the right breast was identified by ultrasound. Lidocaine was injected in to the skin and a small stab incision was made. The Bard core biopsy needle was inserted into the stab incision and advanced. Multiple core were obtained with ultrasound demonstrating targeting into the lesion. A marker clip was then placed via ultrasound guidance. Steristrips were applied to the incision. A bandage was applied to the needle site. Gwen tolerated the procedure well. A postprocedure mammogram was ordered to verify placement of the marker clip Assessment IMPRESSION: Status post biopsy of right upper outer quadrant breast abnormality PLAN: The patient is to return for results of her ultrasound guided breast biopsy. If the patient notes bleeding from the biopsy site, she is to place pressure on the site. Discomfort from brusing can be managed with an ice pack or non steroidal analegics. Diagnoses: (R92.8) Abnormal finding on breast imaging (primary encounter diagnosis) A letter was sent to Dr. Sharif Brown MD, indicating the above finding for this patient. Return to Clinic: The patient is instructed to follow-up with me in one week. Evonne Moreno MD UNIVERSAL PROTOCOL / SAFETY CHECKLIST Procedure to be Performed: Right Ultrasound Guided Core Breast Biopsy Sign In: A Moment of CARE was completed. Personnel directly involved with the procedure wore the appropriate PPE (Personal Protective Equipment). Patient/Surrogate Stated/Verified: PATIENT VERIFIED(optional for EMERGENT procedures): Patient name, Date of , Relevant allergies, and The intended procedure Time Out Communication: Intended patient and procedure match the source documents. Consent documented and matches the intended procedure. Sign Out: SIGN OUT (optional for EMERGENT procedures): All specimen containers correctly labeled. Sybil Ordoñez documented in this encounter [facility] 12-08-2021 Note HNO ID: [id number] Author: Sybil Ordoñez Service: ? Author Type: ? Type: Progress Notes Filed: 12/08/2021 10:38 AM Note Text: UNIVERSAL PROTOCOL / SAFETY CHECKLIST Procedure to be Performed: Right Ultrasound Guided Core Breast Biopsy Sign In: A Moment of CARE was completed. Personnel directly involved with the procedure wore the appropriate PPE (Personal Protective Equipment). Patient/Surrogate Stated/Verified: PATIENT VERIFIED(optional for EMERGENT procedures): Patient name, Date of , Relevant allergies, and The intended procedure Time Out Communication: Intended patient and procedure match the source documents. Consent documented and matches the intended procedure. Sign Out: SIGN OUT (optional for EMERGENT procedures): All specimen containers correctly labeled. Sybil Ordoñez [facility] 12-08-2021 Instructions Sybil Ordoñez - 12/08/2021 10:56 AM EDT The following instructions are important for you related to your office visit today with the [facility] Surgeons. Instructions After OFFICE BASED BREAST BIOPSY Please do not take aspirin or other blood thinners for the next few days. After the procedure, Steri-Strips and a dressing will be placed on your small incision. The dressing may be removed in two to three days after the procedure. The Steri-Strips should be left in place until they fall off. If you have bleeding from the biopsy site, hold pressure with a clean gauze. If the bleeding continues, contact our office immediately. I recommend taking Advil or Tylenol for the discomfort. You should wear a comfortable but somewhat tight fitting bra. If you have significant bruising, an ice pack may improve your discomfort. Please make an appointment to return to our office in weeks. If you note any additional difficulties, questions, or concerns, you should contact our office immediately @ [phone] and ask to be transferred to the General Surgery department. documented in this encounter [facility] 12-08-2021 Nurse Note REVIEW OF SYSTEMS: General: The patient denies fatigue, denies weight loss, denies weight gain, denies feeling hot, and denies feelings of cold. Eyes: The patient denies glaucoma, denies eye injury/surgery, wears glasses or contacts. Ear/Nose/Throat: The patient NOTES allergies, denies hayfever, denies ear infections, and denies bloody noses. Cardiovascular: The patient denies chest pain, denies heart disease, denies high blood pressure,denies cardiac stent, denies prior heart attack, denies irregular heart beat, denies high cholesterol, denies poor circulation, denies heart failure, other cardiac issues, denies claudication, denies cold feet, denies peripheral arterial stent. Respiratory: The patient denies tuberculosis, denies pneumonia, denies frequent cough, denies pulmonary embolism, denies shortness of breath, and denies coughing up blood. Gastrointestinal: The patient denies difficulty swallowing, NOTES acid reflux, denies ulcers, denies vomiting, denies jaundice/hepatitis, denies gallbladder problems, denies black or tarry stools, denies hemorrhoids, denies bleeding from rectum, denies diverticulitis, denies constipation, denies diarrhea, denies loss of stool control, and denies hernias. Kidney/Bladder: The patient denies kidney stones, denies urine infections, and denies bloody urine. Skin: The patient denies a history of skin cancer, denies bleeding/changing moles, and denies a history of skin rash. Neurologic: The patient denies a history of epilepsy/convulsions, NOTES headaches, denies head/spinal injuries, and denies stroke/TIA. Psychiatric: The patient denies psychiatric medications, NOTES depression, and denies voices, denies substance abuse. Endocrine: The patient denies thyroid disorders, denies diabetes, and denies hormonal problems. Hematologic: The patient denies a history of bruising, denies bleeding, and denies anemia, denies blood clots. Infections: The patient denies a history of measles and mumps, denies rheumatic fever, and denies sexually transmitted diseases. Musculoskeletal: The patient denies back pain/injury, denies back problems, denies sciatica, denies knee/foot trouble, denies arthritis, or denies gout. When was patient's last Mammogram screening? 11/23/2021 Last Colonoscopy: 11/08/2021 Sybil Ordoñez documented in this encounter [facility] 11-21-2021 Note HNO ID: [id number] Author: Yomaira Day PA-C Service: ? Author Type: Physician Jail Guard Type: Progress Notes Filed: 11/28/2021 9:04 AM Note Text: FOLLOW UP VISIT - ENDOSCOPY NAME: Gwen Wagoner [facility] NO.: [id number] DATE OF SERVICE: 11/21/2021 : 1965 REFERRING PHYSICIAN: Sharif Brown MD, MD Gwen is a patient I am following for family history of colon cancer and need for screening colonoscopy. Dr. Moreno performed lower endoscopy on 11/08/21. The patient was found to have a 6 mm polyp in the sigmoid colon which was removed. Pathology demonstrated: FINAL DIAGNOSIS A. Colon, sigmoid polyp, biopsy: - Tubular adenoma. The patient notes no complaints since the procedure. VITALS: Last menstrual period 01/12/2018. General: patient is alert, cooperative, pleasant and in no acute distress On examination, the abdomen is benign. Assessment IMPRESSION: s/p colonoscopy with polypectomy, tubular adenoma <10 mm. Family history of colon cancer PLAN: The operative findings and pathology report were reviewed with the patient, and the patient has had the opportunity to ask questions and have questions answered. If the patient notes any problems or changes in bowel function, the patient should contact me immediately. Otherwise I recommend follow up endoscopy in 5 years. HM updated and recall letter generated. Patient verbalized understanding of all above and agreed with the plan Diagnoses: (D36.9) Tubular adenoma (primary encounter diagnosis) (Z80.0) Family history of colon cancer I spent a total of 23 minutes on the date of the service which included preparing to see the patient, [id number] patient care, completing clinical documentation, counseling and educating the patient/family/caregiver, independently interpreting results (not separately reported) and communicating results to the patient/family/caregiver. Yomaira Day PA-C [facility] 11-21-2021 Instructions Yomaira Day PA-C - 11/21/2021 2:16 PM EDT The following instructions are important for you related to your office visit today with the [facility] Sur[facility]. INSTRUCTIONS FOLLOWING A POLYP FOUND AT COLONOSCOPY You were found to have an adenomatous colon polyp. I recommend you undergo repeat endoscopy in 5 years based on polyp as well as family history of colon cancer. If you note bleeding, change in bowel habits, or other suspicious colon related symptoms before that time, those symptoms should be evaluated as necessary. If you have any difficulties or concerns, you should contact our office immediately. If you note any additional difficulties, questions, or concerns, you should contact our office immediately @ [phone] and ask to be transferred to the General Surgery department. documented in this encounter [facility] 11-21-2021 History of Presen t illness Narrative FOLLOW UP VISIT - ENDOSCOPY NAME: Gwen Pool [facility] NO.: [id number] DATE OF SERVICE: 11/21/2021 : 1965 REFERRING PHYSICIAN: Sharif Brown MD, Gwen is a patient I am following for family history of colon cancer and need for screening colonoscopy. Dr. Moreno performed lower endoscopy on 11/08/21. The patient was found to have a 6 mm polyp in the sigmoid colon which was removed. Pathology demonstrated: FINAL DIAGNOSIS A. Colon, sigmoid polyp, biopsy: - Tubular adenoma. The patient notes no complaints since the procedure. VITALS: Last menstrual period 01/12/2018. General: patient is alert, cooperative, pleasant and in no acute distress On examination, the abdomen is benign. Assessment IMPRESSION: s/p colonoscopy with polypectomy, tubular adenoma <10 mm. Family history of colon cancer PLAN: The operative findings and pathology report were reviewed with the patient, and the patient has had the opportunity to ask questions and have questions answered. If the patient notes any problems or changes in bowel function, the patient should contact me immediately. Otherwise I recommend follow up endoscopy in 5 years. HM updated and recall letter generated. Patient verbalized understanding of all above and agreed with the plan Diagnoses: (D36.9) Tubular adenoma (primary encounter diagnosis) (Z80.0) Family history of colon cancer I spent a total of 23 minutes on the date of the service which included preparing to see the patient, [id number] patient care, completing clinical documentation, counseling and educating the patient/family/caregiver, independently interpreting results (not separately reported) and communicating results to the patient/family/caregiver. Yomaira Day PA-C documented in this encounter [facility] 11-14-2021 Miscellaneous Notes Contacted patient, scheduled 11/21 @ 2:00 pm with Graf. Martha Welch PSS ----- Message from Yomaira Day PA-C sent at 11/14/2021 10:39 AM EDT ----- Please schedule patient for virtual or office visit to review path results 11/08 colon asc documented in this encounter [facility] 11-08-[address] Moreno post procedure said only 1 biopsy taken, patient can call office for results in 1 week, no post appointment needs set up at this time. Patient received in PACU, on left side, respirations regular and unlabored, eyes open to verbal stimuli, abdomen soft and non distended, denies pain on nausea. documented in this encounter [facility] 11-08-2021 History and physical note UPDATED PROCEDURAL SEDATION HISTORY AND PHYSICAL EXAMINATION SERVICE DATE: 11/08/2021 SERVICE TIME: 7:28 AM PHYSICAL EXAM MUST BE COMPLETED ON ADMISSION PROCEDURE: Procedure Indications: The History and Physical (completed in the past 30 days) has been reviewed and the patient has been examined. The contents accurately reflect the patient's condition with the following additions or revisions since the H&P was completed. ASA Class: ASA Class:: Patient with mild systemic disease Examination indicates no changes. AIRWAY: Airway Visualization of Uvula: Yes Mouth opening greater than 2 fingerbreadths: Yes Neck Full Range of Motion: Yes LUNGS: Lungs clear to auscultation CARDIAC: Regular rhythm,Regular rate Provisional Diagnosis/Treatment Plan: high risk screening colonoscopy SEDATION GOAL: Moderate This H&P can be found in the attached. SIGNATURE: Evonne Moreno MD PATIENT NAME: Gwen Lopez DATE: November 08, 2021 TIME: 7:28 AM Images from the original note were not included. HISTORY AND PHYSICAL Gwen Lopez 1965 REFERRING PHYSICIAN: Sharif Brown MD CHIEF COMPLAINT: Consult (colonoscopy) HPI: The patient is a 55 year old female referred for endoscopy. Gwen notes no colon complaints. Patient denies any change in bowel habits, weight changes, blood in stools, black tarry stools or abdominal pain. NOTES family history of colon cancer-mother was diagnosed in 2020. Patient notes her mother's physicians advised that all family members have colonoscopy at this time and stay on high-risk surveillance interval. The patient notes no upper GI complaints. Gwen has undergone prior endoscopy. Last colonoscopy 05/07/[address] Mroeno with no concerning findings at that time. Patient denies chest pain, shortness of breath or recent hospitalizations. Denies problems with sedation in the past. PAST MEDICAL HISTORY PAST MEDICAL HISTORY Diagnosis Date Migraine without aura PAST SURGICAL HISTORY PAST SURGICAL HISTORY Procedure Laterality Date COLONOSCOPY 05/07/2015 CRYOTHERAPY B/O 1997 approx cryo of cervix EGD EGD TRANSORAL BIOPSY SINGLE/MULTIPLE 05/07/2015 NONE CURRENT MEDICATIONS Current Outpatient Medications Medication Sig famotidine (PEPCID) 20 mg tablet Take 20 mg by mouth as needed. VICODIN 5 MG-500 MG TAB Take 1-2 tablet's) every six(6) hours as needed for pain. Omeprazole (PRILOSEC) 40 mg capsule Take 1 capsule by mouth once daily. (Patient not taking: Reported on 10/18/2021 ) nmrdsvfkkzqn-cgk-yuczzwgofakzy (PRODRIN) 65-20-325 mg tab Take by mouth. Take two tablets at onset of headaches (Patient not taking: Reported on 10/18/2021 ) meloxicam (MOBIC) 7.5 mg tablet Take 7.5 mg by mouth once daily. 5-7 days for menstrual symptoms (Patient not taking: Reported on 10/18/2021 ) nortriptyline (PAMELOR) 10 mg capsule Take 10 mg by mouth daily at bedtime. 1-3 capsules as directed at dinner No current facility-administered medications for this visit. ALLERGIES: Erythromycin and Penicillins PERSONAL HISTORY: SOCIAL HISTORY Social History Tobacco Use Smoking status: Current Every Day Smoker Packs/day: 0.50 Years: 3.00 Pack years: 1.50 Types: Cigarettes Smokeless tobacco: Never Used Vaping Use Vaping Use: Never used Substance Use Topics Alcohol use: Yes Comment: Occasionally Drug use: No FAMILY HISTORY: FAMILY HISTORY FAMILY HISTORY Problem Relation Age of Onset Colon Cancer Mother Cancer Father Breast Cancer Sister Breast Cancer Other cousin REVIEW OF SYMPTOMS: The review of systems data was entered by the nurse and reviewed by wy Nursing Notes: Rita Kirkpatrick RN 10/18/2021 10:44 AM Signed REVIEW OF SYSTEMS: General: The patient denies fatigue, denies weight loss, denies weight gain, denies feeling hot, and denies feelings of cold. Eyes: The patient denies glaucoma, denies eye injury/surgery, does not wear glasses or contacts. Ear/Nose/Throat: The patient denies allergies, denies hayfever, denies ear infections, and denies bloody noses. Cardiovascular: The patient denies chest pain, denies heart disease, denies high blood pressure,denies cardiac stent, denies prior heart attack, denies irregular heart beat, denies high cholesterol, denies poor circulation, denies heart failure, other cardiac issues, denies claudication, denies cold feet, denies peripheral arterial stent. Respiratory: The patient denies tuberculosis, denies pneumonia, denies frequent cough, denies pulmonary embolism, denies shortness of breath, and denies coughing up blood. Gastrointestinal: The patient denies difficulty swallowing, denies acid reflux, denies ulcers, denies vomiting, denies jaundice/hepatitis, denies gallbladder problems, denies black or tarry stools, denies hemorrhoids, denies bleeding from rectum, denies diverticulitis, denies constipation, denies diarrhea, denies loss of stool control, and denies hernias. Kidney/Bladder: The patient denies kidney stones, denies urine infections, and denies bloody urine. Skin: The patient denies a history of skin cancer, denies bleeding/changing moles, and denies a history of skin rash. Neurologic: The patient denies a history of epilepsy/convulsions, NOTES headaches, denies head/spinal injuries, and denies stroke/TIA. Psychiatric: The patient denies psychiatric medications, denies depression, and denies voices, denies substance abuse. Endocrine: The patient denies thyroid disorders, denies diabetes, and denies hormonal problems. Hematologic: The patient denies a history of bruising, denies bleeding, and denies anemia, denies blood clots. Infections: The patient denies a history of measles and mumps, denies rheumatic fever, and denies sexually transmitted diseases. Musculoskeletal: The patient denies back pain/injury, denies back problems, denies sciatica, denies knee/foot trouble, denies arthritis, or denies gout. When was patient's last Mammogram screening? 2019 Last Colonoscopy: 2015 Rita Kirkpatrick RN I have confirmed and edited as necessary, the PFSH and ROS obtained by others. Yomaira Day PA-C PHYSICAL EXAMINATION: General: The patient is 55 year old female, well nourished, well hydrated in no acute distress. The patient is oriented to time, place, and person. VITALS: Blood pressure 130/82, pulse 85, temperature 36.4 C (97.5 F), height 157.5 cm (5' 2), weight 92.6 kg (204 lb 3.2 oz), last menstrual period 01/12/2018, SpO2 98 %. Body mass index is 37.35 kg/m . HEENT: Normal cephalic, ataumatic, pupils are equally round, sclera are anicteric, mucous membranes are moist, oropharynx is clear. Neck has no masses, asymmetry or lymphadenopathy. Respiratory: Clear to auscultation and percussion. Normal respiratory excursion and pattern. Cardiac: Examination is regular rate and rhythm. Normal S1/S2 Abdominal exam: Soft, nontender, with no palpable masses. No hepatosplenomegaly. No palpable hernias. Extremities: no clubbing, cyanosis or edema. No adenopathy. LABORATORY VALUES: As Noted RADIOLOGIC STUDIES: As Noted Assessment IMPRESSION: encounter for screening colonoscopy. Family history of colon cancer PLAN: I have reviewed my findings with the surgeon. Will plan for lower endoscopy. We discussed the risks and benefits of the planned endoscopy. I have informed the patient that complications can occur including failure to complete the endoscopy and perforation. The patient had the opportunity to ask questions concerning the planned endoscopy. My staff has also explained the procedure to the patient in understandable terms and has given the patient printed material concerning the procedure. The patient freely consents to surgery. The patient was offered a surgery/procedure at a [facility] facility. I have counseled the patient regarding the risk of exposure to and/or potential harm posed by the COVID-19 virus with having a surgery/procedure at this time versus the risk of delaying the surgery/procedure. It is not possible to know either the risk of delaying the surgery or procedure or chance of getting an infection with perfect accuracy, but a joint decision was made between the patient and myself to proceed at this time with endoscopy. I plan to use Golytely bowel preparation I have explained to the patient the difference between IV conscious sedation and MAC anesthesia - and I have offered either, according to the patient's wishes. I have explained that with IV conscious sedation there is no anesthesia provider available and therefore there is a limitation of the amount of IV medications that can be given and that the patient may wake up in the middle of the procedure and/or experience pain/discomfort during the procedure. Further discussion was done and the patient was given the opportunity to ask questions and all questions were answered. The patient chooses IV conscious sedation Diagnoses: (Z12.11) Encounter for screening for malignant neoplasm of colon (primary encounter diagnosis) (Z80.0) Family history of colon cancer Consultation requested by Dr. Brown for an opinion regarding colonoscopy. My final recommendations will be communicated back to the requesting physician by way of shared Medical record or letter to requesting physician via US mail. Yomaira Day PA-C documented in this encounter [facility] 10-18-2021 Note HNO ID: [id number] Author: Yomaira Day PA-C Service: ? Author Type: Physician Jail Guard Type: Progress Notes Filed: 10/24/2021 4:46 PM Note Text: HISTORY AND PHYSICAL Gwen Wagoner Angelika Lopez 1965 REFERRING PHYSICIAN: Sharif Brown MD CHIEF COMPLAINT: Consult (colonoscopy) HPI: The patient is a 55 year old female referred for endoscopy. Gwen notes no colon complaints. Patient denies any change in bowel habits, weight changes, blood in stools, black tarry stools or abdominal pain. NOTES family history of colon cancer-mother was diagnosed in 2020. Patient notes her mother's physicians advised that all family members have colonoscopy at this time and stay on high-risk surveillance interval. The patient notes no upper GI complaints. Gwen has undergone prior endoscopy. Last colonoscopy 05/07/[address] Moreno with no concerning findings at that time. Patient denies chest pain, shortness of breath or recent hospitalizations. Denies problems with sedation in the past. PAST MEDICAL HISTORY Diagnosis Date - Migraine without aura PAST SURGICAL HISTORY Procedure Laterality Date - COLONOSCOPY 05/07/2015 - CRYOTHERAPY B/O 1997 approx cryo of cervix - EGD - EGD TRANSORAL BIOPSY SINGLE/MULTIPLE 05/07/2015 - NONE Current Outpatient Medications Medication Sig - famotidine (PEPCID) 20 mg tablet Take 20 mg by mouth as needed. - VICODIN 5 MG-500 MG TAB Take 1-2 tablet's) every six(6) hours as needed for pain. - Omeprazole (PRILOSEC) 40 mg capsule Take 1 capsule by mouth once daily. (Patient not taking: Reported on 10/18/2021 ) - gtiipovxnkwx-mvu-lwyazsbfqredw (PRODRIN) 65-20-325 mg tab Take by mouth. Take two tablets at onset of headaches (Patient not taking: Reported on 10/18/2021 ) - meloxicam (MOBIC) 7.5 mg tablet Take 7.5 mg by mouth once daily. 5-7 days for menstrual symptoms (Patient not taking: Reported on 10/18/2021 ) - nortriptyline (PAMELOR) 10 mg capsule Take 10 mg by mouth daily at bedtime. 1-3 capsules as directed at dinner No current facility-administered medications for this visit. ALLERGIES: Erythromycin and Penicillins PERSONAL HISTORY: Social History Tobacco Use - Smoking status: Current Every Day Smoker Packs/day: 0.50 Years: 3.00 Pack years: 1.50 Types: Cigarettes - Smokeless tobacco: Never Used Vaping Use - Vaping Use: Never used Substance Use Topics - Alcohol use: Yes Comment: Occasionally - Drug use: No FAMILY HISTORY: FAMILY HISTORY Problem Relation Age of Onset - Colon Cancer Mother - Cancer Father - Breast Cancer Sister - Breast Cancer Other cousin REVIEW OF SYMPTOMS: The review of systems data was entered by the nurse and reviewed by wy Nursing Notes: Rita Kirkpatrick RN 10/18/2021 10:44 AM Signed REVIEW OF SYSTEMS: General: The patient denies fatigue, denies weight loss, denies weight gain, denies feeling hot, and denies feelings of cold. Eyes: The patient denies glaucoma, denies eye injury/surgery, does not wear glasses or contacts. Ear/Nose/Throat: The patient denies allergies, denies hayfever, denies ear infections, and denies bloody noses. Cardiovascular: The patient denies chest pain, denies heart disease, denies high blood pressure,denies cardiac stent, denies prior heart attack, denies irregular heart beat, denies high cholesterol, denies poor circulation, denies heart failure, other cardiac issues, denies claudication, denies cold feet, denies peripheral arterial stent. Respiratory: The patient denies tuberculosis, denies pneumonia, denies frequent cough, denies pulmonary embolism, denies shortness of breath, and denies coughing up blood. Gastrointestinal: The patient denies difficulty swallowing, denies acid reflux, denies ulcers, denies vomiting, denies jaundice/hepatitis, denies gallbladder problems, denies black or tarry stools, denies hemorrhoids, denies bleeding from rectum, denies diverticulitis, denies constipation, denies diarrhea, denies loss of stool control, and denies hernias. Kidney/Bladder: The patient denies kidney stones, denies urine infections, and denies bloody urine. Skin: The patient denies a history of skin cancer, denies bleeding/changing moles, and denies a history of skin rash. Neurologic: The patient denies a history of epilepsy/convulsions, NOTES headaches, denies head/spinal injuries, and denies stroke/TIA. Psychiatric: The patient denies psychiatric medications, denies depression, and denies voices, denies substance abuse. Endocrine: The patient denies thyroid disorders, denies diabetes, and denies hormonal problems. Hematologic: The patient denies a history of bruising, denies bleeding, and denies anemia, denies blood clots. Infections: The patient denies a history of measles and mumps, denies rheumatic fever, and denies sexually transmitted diseases. Musculoskeletal: The patient denies back pain/injury, denies back problems, d (more content not included)... [facility] 10-18-2021 History of Presen t illness Narrative HISTORY AND PHYSICAL Gwen Lopez 1965 REFERRING PHYSICIAN: Sharif Brown MD CHIEF COMPLAINT: Consult (colonoscopy) HPI: The patient is a 55 year old female referred for endoscopy. Gwen notes no colon complaints. Patient denies any change in bowel habits, weight changes, blood in stools, black tarry stools or abdominal pain. NOTES family history of colon cancer-mother was diagnosed in 2020. Patient notes her mother's physicians advised that all family members have colonoscopy at this time and stay on high-risk surveillance interval. The patient notes no upper GI complaints. Gwen has undergone prior endoscopy. Last colonoscopy 05/07/[address] Moreno with no concerning findings at that time. Patient denies chest pain, shortness of breath or recent hospitalizations. Denies problems with sedation in the past. PAST MEDICAL HISTORY Diagnosis Date Migraine without aura PAST SURGICAL HISTORY Procedure Laterality Date COLONOSCOPY 05/07/2015 CRYOTHERAPY B/O 1997 approx cryo of cervix EGD EGD TRANSORAL BIOPSY SINGLE/MULTIPLE 05/07/2015 NONE Current Outpatient Medications Medication Sig famotidine (PEPCID) 20 mg tablet Take 20 mg by mouth as needed. VICODIN 5 MG-500 MG TAB Take 1-2 tablet's) every six(6) hours as needed for pain. Omeprazole (PRILOSEC) 40 mg capsule Take 1 capsule by mouth once daily. (Patient not taking: Reported on 10/18/2021 ) tvjbgegwbdez-tex-qwaxspvwqyupx (PRODRIN) 65-20-325 mg tab Take by mouth. Take two tablets at onset of headaches (Patient not taking: Reported on 10/18/2021 ) meloxicam (MOBIC) 7.5 mg tablet Take 7.5 mg by mouth once daily. 5-7 days for menstrual symptoms (Patient not taking: Reported on 10/18/2021 ) nortriptyline (PAMELOR) 10 mg capsule Take 10 mg by mouth daily at bedtime. 1-3 capsules as directed at dinner No current facility-administered medications for this visit. ALLERGIES: Erythromycin and Penicillins PERSONAL HISTORY: Social History Tobacco Use Smoking status: Current Every Day Smoker Packs/day: 0.50 Years: 3.00 Pack years: 1.50 Types: Cigarettes Smokeless tobacco: Never Used Vaping Use Vaping Use: Never used Substance Use Topics Alcohol use: Yes Comment: Occasionally Drug use: No FAMILY HISTORY: FAMILY HISTORY Problem Relation Age of Onset Colon Cancer Mother Cancer Father Breast Cancer Sister Breast Cancer Other cousin REVIEW OF SYMPTOMS: The review of systems data was entered by the nurse and reviewed by me Nursing Notes: Rita Kirkpatrick RN 10/18/2021 10:44 AM Signed REVIEW OF SYSTEMS: General: The patient denies fatigue, denies weight loss, denies weight gain, denies feeling hot, and denies feelings of cold. Eyes: The patient denies glaucoma, denies eye injury/surgery, does not wear glasses or contacts. Ear/Nose/Throat: The patient denies allergies, denies hayfever, denies ear infections, and denies bloody noses. Cardiovascular: The patient denies chest pain, denies heart disease, denies high blood pressure,denies cardiac stent, denies prior heart attack, denies irregular heart beat, denies high cholesterol, denies poor circulation, denies heart failure, other cardiac issues, denies claudication, denies cold feet, denies peripheral arterial stent. Respiratory: The patient denies tuberculosis, denies pneumonia, denies frequent cough, denies pulmonary embolism, denies shortness of breath, and denies coughing up blood. Gastrointestinal: The patient denies difficulty swallowing, denies acid reflux, denies ulcers, denies vomiting, denies jaundice/hepatitis, denies gallbladder problems, denies black or tarry stools, denies hemorrhoids, denies bleeding from rectum, denies diverticulitis, denies constipation, denies diarrhea, denies loss of stool control, and denies hernias. Kidney/Bladder: The patient denies kidney stones, denies urine infections, and denies bloody urine. Skin: The patient denies a history of skin cancer, denies bleeding/changing moles, and denies a history of skin rash. Neurologic: The patient denies a history of epilepsy/convulsions, NOTES headaches, denies head/spinal injuries, and denies stroke/TIA. Psychiatric: The patient denies psychiatric medications, denies depression, and denies voices, denies substance abuse. Endocrine: The patient denies thyroid disorders, denies diabetes, and denies hormonal problems. Hematologic: The patient denies a history of bruising, denies bleeding, and denies anemia, denies blood clots. Infections: The patient denies a history of measles and mumps, denies rheumatic fever, and denies sexually transmitted diseases. Musculoskeletal: The patient denies back pain/injury, denies back problems, denies sciatica, denies knee/foot trouble, denies arthritis, or denies gout. When was patient's last Mammogram screening? 2019 Last Colonoscopy: 2015 Rita Kirkpatrick RN I have confirmed and edited as necessary, the PFSH and ROS obtained by others. Yomaira Day PA-C PHYSICAL EXAMINATION: General: The patient is 55 year old female, well nourished, well hydrated in no acute distress. The patient is oriented to time, place, and person. VITALS: Blood pressure 130/82, pulse 85, temperature 36.4 C (97.5 F), height 157.5 cm (5' 2), weight 92.6 kg (204 lb 3.2 oz), last menstrual period 01/12/2018, SpO2 98 %. Body mass index is 37.35 kg/m . HEENT: Normal cephalic, ataumatic, pupils are equally round, sclera are anicteric, mucous membranes are moist, oropharynx is clear. Neck has no masses, asymmetry or lymphadenopathy. Respiratory: Clear to auscultation and percussion. Normal respiratory excursion and pattern. Cardiac: Examination is regular rate and rhythm. Normal S1/S2 Abdominal exam: Soft, nontender, with no palpable masses. No hepatosplenomegaly. No palpable hernias. Extremities: no clubbing, cyanosis or edema. No adenopathy. LABORATORY VALUES: As Noted RADIOLOGIC STUDIES: As Noted Assessment IMPRESSION: encounter for screening colonoscopy. Family history of colon cancer PLAN: I have reviewed my findings with the surgeon. Will plan for lower endoscopy. We discussed the risks and benefits of the planned endoscopy. I have informed the patient that complications can occur including failure to complete the endoscopy and perforation. The patient had the opportunity to ask questions concerning the planned endoscopy. My staff has also explained the procedure to the patient in understandable terms and has given the patient printed material concerning the procedure. The patient freely consents to surgery. The patient was offered a surgery/procedure at a [facility] facility. I have counseled the patient regarding the risk of exposure to and/or potential harm posed by the COVID-19 virus with having a surgery/procedure at this time versus the risk of delaying the surgery/procedure. It is not possible to know either the risk of delaying the surgery or procedure or chance of getting an infection with perfect accuracy, but a joint decision was made between the patient and myself to proceed at this time with endoscopy. I plan to use Golytely bowel preparation I have explained to the patient the difference between IV conscious sedation and MAC anesthesia - and I have offered either, according to the patient's wishes. I have explained that with IV conscious sedation there is no anesthesia provider available and therefore there is a limitation of the amount of IV medications that can be given and that the patient may wake up in the middle of the procedure and/or experience pain/discomfort during the procedure. Further discussion was done and the patient was given the opportunity to ask questions and all questions were answered. The patient chooses IV conscious sedation Diagnoses: (Z12.11) Encounter for screening for malignant neoplasm of colon (primary encounter diagnosis) (Z80.0) Family history of colon cancer Consultation requested by Dr. Brown for an opinion regarding colonoscopy. My final recommendations will be communicated back to the requesting physician by way of shared Medical record or letter to requesting physician via US mail. Yomaira Day PA-C documented in this encounter [facility] 10-18-2021 Nurse Note REVIEW OF SYSTEMS: General: The patient denies fatigue, denies weight loss, denies weight gain, denies feeling hot, and denies feelings of cold. Eyes: The patient denies glaucoma, denies eye injury/surgery, does not wear glasses or contacts. Ear/Nose/Throat: The patient denies allergies, denies hayfever, denies ear infections, and denies bloody noses. Cardiovascular: The patient denies chest pain, denies heart disease, denies high blood pressure,denies cardiac stent, denies prior heart attack, denies irregular heart beat, denies high cholesterol, denies poor circulation, denies heart failure, other cardiac issues, denies claudication, denies cold feet, denies peripheral arterial stent. Respiratory: The patient denies tuberculosis, denies pneumonia, denies frequent cough, denies pulmonary embolism, denies shortness of breath, and denies coughing up blood. Gastrointestinal: The patient denies difficulty swallowing, denies acid reflux, denies ulcers, denies vomiting, denies jaundice/hepatitis, denies gallbladder problems, denies black or tarry stools, denies hemorrhoids, denies bleeding from rectum, denies diverticulitis, denies constipation, denies diarrhea, denies loss of stool control, and denies hernias. Kidney/Bladder: The patient denies kidney stones, denies urine infections, and denies bloody urine. Skin: The patient denies a history of skin cancer, denies bleeding/changing moles, and denies a history of skin rash. Neurologic: The patient denies a history of epilepsy/convulsions, NOTES headaches, denies head/spinal injuries, and denies stroke/TIA. Psychiatric: The patient denies psychiatric medications, denies depression, and denies voices, denies substance abuse. Endocrine: The patient denies thyroid disorders, denies diabetes, and denies hormonal problems. Hematologic: The patient denies a history of bruising, denies bleeding, and denies anemia, denies blood clots. Infections: The patient denies a history of measles and mumps, denies rheumatic fever, and denies sexually transmitted diseases. Musculoskeletal: The patient denies back pain/injury, denies back problems, denies sciatica, denies knee/foot trouble, denies arthritis, or denies gout. When was patient's last Mammogram screening? 2019 Last Colonoscopy: 2015 Rita Kirkpatrick RN documented in this encounter [facility] Evaluation note Diagnosis Encounter for screening for malignant neoplasm of colon- Primary Special screening for malignant neoplasms, colon Family history of colon cancer Family history of malignant neoplasm of gastrointestinal tract [facility] Family history of colon cancer Family history of malignant neoplasm of gastrointestinal tract [facility] [place] [facility] Diagnosis Family history of colon cancer- Primary Family history of malignant neoplasm of gastrointestinal tract [facility] [place] [facility]No assessment [facility]* Diagnosis Tubular adenoma- Primary Benign neoplasm of unspecified site Family history of colon cancer Family history of malignant neoplasm of gastrointestinal tract documented in this encounter [facility] note* Diagnosis Abnormal finding on breast imaging- Primary Other (abnormal) findings on radiological examination of breast documented in this encounter [facility] note* Diagnosis Abnormal finding on breast imaging Other (abnormal) findings on radiological examination of breast documented in this encounter [facility] note* Diagnosis Abnormal finding on breast imaging- Primary Other (abnormal) findings on radiological examination of breast documented in this encounter [facility] note* Diagnosis Abnormal finding on breast imaging- Primary Other (abnormal) findings on radiological examination of breast documented in this encounter [facility] note* Diagnosis Abnormal finding on breast imaging Other (abnormal) findings on radiological examination of breast documented in this encounter [facility] note* Diagnosis Onset Date Resolution Status Acute bacterial sinusitis ac [place] Contact with or suspected ex posure to other viral communicable disease acute Urinary tract infection none active [facility] Work Phone: Reason for referral (narrative)* Outpatient Procedure (Routine) - Closed Specialty Diagnoses / Procedures Referred By Katharina cortez Referred To Contact [facility] Diagnoses Family history of colon cancer Procedures COLONOSCOPY SCREENING COLONOSCOPY FLX DX W/COLLJ SPEC WHEN Yomaira Jeffers PA-C [address] [place] [address] [facility] [address] [place] [address] Referral ID Status Reason Start Date Expiration Date V isits Requested Visits Authorized [id number] Closed Auto-Generate d Referral 10/18/2021 10/18/2022 1 1 [facility] for referral (narrative)* Outpatient Procedure (Routine) - Closed Specialty Diagnoses / Procedures Referred By Katharina cortez Referred To Contact [facility] Diagnoses Family history of colon cancer Procedures COLONOSCOPY SCREENING COLONOSCOPY FLX DX W/COLLJ SPEC WHEN Yomaira Jeffers PA-C [address] [place] [address] [facility] [address] [place] [address] Referral ID Status Reason Start Date Expiration Date V isits Requested Visits Authorized [id number] Closed Auto-Generate d Referral 10/18/2021 10/18/2022 1 1 T [facility] for referral (narrative)* Diagnostic Procedure Only (Routine) - Closed Specialty Diagnoses / Procedures Referred By Katharina Referred To Contact [facility] Diagnoses Abnormal finding on breast imaging Procedures [facility] RT DIAGNOSTIC MAMMOGRAPHY COMPUTER-AIDED [facility] Evonne Gaitan MD [address] [place] [address] [facility] [address] [place] [address] Referral ID Status Reason Start Date Expiration Date V isits Requested Visits Authorized [id number] Closed Auto-Generate d Referral 12/08/2021 04/29/2022 1 1 [facility] for referral (narrative)* Diagnostic Procedure Only (Routine) - Closed Specialty Diagnoses / Procedures Referred By Katharina cortez Referred To Contact [facility] Diagnoses Abnormal finding on breast imaging Procedures FRANCISCA DIAGNOSTIC RT DIAGNOSTIC MAMMOGRAPHY COMPUTER-AIDED [facility] Evonne Gaitan MD [address] [place] [address] [facility] [address] [place] [address] Referral ID Status Reason Start Date Expiration Date V isits Requested Visits Authorized [id number] Closed Auto-Generate d Referral 12/08/2021 04/29/2022 1 1 [facility] for referral (narrative)* Diagnostic Procedure Only (Routine) - Pending Review Specialty Diagnoses / Procedures Referred By Katharina cortez Referred To Contact [facility] Diagnoses Abnormal finding on breast imaging Procedures US BREAST LTD RT US BREAST UNI REAL TIME WITH IMAGE LIMITED Evonne Moreno MD [address] [place] [address] [facility] [address] [place] [address] Referral ID Status Reason Start Date Expiration Date Visits Requested Visits Authorized [id number] Pending Review Auto-Generat ed Referral 06/17/2022 01/14/2023 1 1 * Diagnostic Procedure Only (Routine) - Authorized Specialty Diagnoses / Procedures Referred By Katharina cortez Referred To Contact [facility] Diagnoses Abnormal finding on breast imaging Procedures FRANCISCA DIAGNOSTIC RT DIAGNOSTIC MAMMOGRAPHY COMPUTER-AIDED [facility]CJ UNI Evonne Moreno MD [address] [place] [address] [facility] [address] [place] [address] Referral ID Status Reason Start Date Expiration Date Visits Requested Visits Authorized [id number] Authorized Auto-Generat ed Referral 06/17/2022 01/14/2023 1 1 [facility] for referral (narrative)* Diagnostic Procedure Only (Routine) - Pending Review Specialty Diagnoses / Procedures Referred By Katharina cortez Referred To Contact [facility] Diagnoses Abnormal finding on breast imaging Procedures FRANCISCA SCREENING SCREENING MAMMOGRAPHY BI 2-VIEW BREAST INC CAD Evonne Moreno MD [address] [place] [address] [facility] [address] [place] [address] Referral ID Status Reason Start Date Expiration Date Visits Requested Visits Authorized [id number] Pending Review Auto-Generat ed Referral 12/25/2022 07/27/2023 1 1 [facility] for referral (narrative)* Diagnostic Procedure Only (Routine) - Closed Specialty Diagnoses / Procedures Referred By Katharina cortez Referred To Contact [facility] Diagnoses Abnormal finding on breast imaging Procedures FRANCISCA DIAGNOSTIC RT DIAGNOSTIC MAMMOGRAPHY COMPUTER-AIDED DETCJ Evonne Gaitan MD [address] [place] [address] [facility] [address] [place] [address] Referral ID Status Reason Start Date Expiration Date V isits Requested Visits Authorized [id number] Closed Auto-Generate d Referral 06/17/2022 01/14/2023 1 1 [facility] for visit Narrative* Outpatient Procedure (Routine) - Closed Specialty Diagnoses / Procedures Referred By Katharina cortez Referred To Contact [facility] Diagnoses Family history of colon cancer Procedures COLONOSCOPY SCREENING COLONOSCOPY FLX DX W/COLLJ SPEC WHEN PFRMD Yomaira Day PA-C [address] [place] [address] [facility] [address] [place] [address] Referral ID Status Reason Start Date Expiration Date V isits Requested Visits Authorized [id number] Closed Auto-Generate d Referral 10/18/2021 10/18/2022 1 1 [facility] for visit Narrative* Diagnostic Procedure Only (Routine) - Closed Specialty Diagnoses / Procedures Referred By Katharina cortez Referred To Contact [facility] Diagnoses Abnormal finding on breast imaging Procedures FRANCISCA DIAGNOSTIC RT DIAGNOSTIC MAMMOGRAPHY COMPUTER-AIDED DETCJ Evonne Gaitan MD [address] [place] [address] [facility] [address] [place] [address] Referral ID Status Reason Start Date Expiration Date V isits Requested Visits Authorized [id number] Closed Auto-Generate d Referral 12/08/2021 04/29/2022 1 1 [facility] for visit Narrative* Diagnostic Procedure Only (Routine) - Closed Specialty Diagnoses / Procedures Referred By Katharina cortez Referred To Contact [facility] Diagnoses Abnormal finding on breast imaging Procedures FRANCISCA DIAGNOSTIC RT DIAGNOSTIC MAMMOGRAPHY COMPUTER-AIDED DETCJ Evonne Gaitan MD [address] [place] [address] [facility] [address] [place] [address] Referral ID Status Reason Start Date Expiration Date V isits Requested Visits Authorized [id number] Closed Auto-Generate d Referral 06/17/2022 01/14/2023 1 1 [facility] Advance Directives No Advanced Directives Records FoundDocuments on File Type Date Recorded 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 Advance Directive(s) 08/06/2015 8:29 AM Documents on File Type Date Recorded 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 Advance Directive(s) 11/08/2021 6:59 AM Advance Directive(s) 08/06/2015 8:29 AM Advance Directive Response Recorded Date/ Time Living Will No December 14 11:45am Power of Pizza Maker No December 14 11:45am Documents on File Type Date Recorded 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 Advance Directive(s) 11/08/2021 6:59 AM Advance Directive(s) 08/06/2015 8:29 AM Advance Directive Response Recorded Date/ Time Living Will No December 14 10:45am Power of Pizza Maker No December 14 017 10:45am Medications Administered Section Inactive Administered Medications - up to 3 most recent administrations Medication Order MAR Action Action Date Dose Rate Site diphenhydrAMINE 12.5-50 mg injection (BENADRYL) 12.5-50 mg, INTRAVENOUS, DIRECTED, Starting on Sun11/08/21 at 0800, Until Sun11/08/21 at 1159, DOSING DIRECTED BY PHYSICIAN FOR PROCEDURAL SEDATION ONLY, Intraprocedure Given by [facility] 11/08/2021 7:39 AM EDT 50 mg fentaNYL 50 mcg/mL 25-100 mcg injection (SUBLIMAZE) 25-100 mcg, INTRAVENOUS, DIRECTED, Starting on Sun11/08/21 at 0800, Until Sun11/08/21 at 1159, DOSING DIRECTED BY PHYSICIAN FOR PROCEDURAL SEDATION ONLY, Intraprocedure Given by [facility] 11/08/2021 7:41 AM EDT 25 mcg Given by [facility] 11/08/2021 7:40 AM EDT 25 mcg Given by [facility] 11/08/2021 7:38 AM EDT 50 mcg lactated ringers iv infusion 30 mL/hr, INTRAVENOUS, CONTINUOUS, Starting on Sun11/08/21 at 0730, Until Sun11/08/21 at 0802, Preprocedure New Bag/Syringe/Bottle 11/08/2021 7:15 AM EDT 30 mL/hr 30 mL/hr Hand, Right midazolam (PF) 1-5 mg injection (VERSED) 1-5 mg, INTRAVENOUS, DIRECTED, Starting on Sun11/08/21 at 0800, Until Sun11/08/21 at 1159, DOSING DIRECTED BY PHYSICIAN FOR PROCEDURAL SEDATION ONLY, Intraprocedure Given 11/08/2021 7:46 AM EDT 1 mg Given by [facility] 11/08/2021 7:41 AM EDT 1 mg Given by [facility] 11/08/2021 7:40 AM EDT 1 mg Summary Purpose Family History No Family History Records FoundNo Family History Records FoundNo Family History Records Found Chief Complaint and Reason for Visit Chief Complaint SCREENING ABNORMAL MAMMOGRAM RIGHT Chief Complaint SCREENING ABNORMAL MAMMOGRAM RIGHT EORDER Chief Complaint COUGH, SORE THROAT Urinary tract infection Reason for Visit Acute bacterial sinu sitis Contact with or suspected exposure to other viral communicable disease Urinary tract infection Additional Source Comments Source Comments (unrecognize d section and content) In the event this informatio n is protected by the Federal Confidentiality of Alcohol and Drug Abuse Patient Records regulations: The Federal rules restrict any use of the information to criminally investigate or prosecute any alcohol or drug abuse patient.[facility] the event this information is protected by the Federal Confidentiality of Alcohol and Drug Abuse Patient Records regulations: The Federal rules restrict any use of the information to criminally investigate or prosecute any alcohol or drug abuse patient.[facility] the event this information is protected by the Federal Confidentiality of Alcohol and Drug Abuse Patient Records regulations: The Federal rules restrict any use of the information to criminally investigate or prosecute any alcohol or drug abuse patient.[facility] the event this information is protected by the Federal Confidentiality of Alcohol and Drug Abuse Patient Records regulations: The Federal rules restrict any use of the information to criminally investigate or prosecute any alcohol or drug abuse patient.[facility] the event this information is protected by the Federal Confidentiality of Alcohol and Drug Abuse Patient Records regulations: The Federal rules restrict any use of the information to criminally investigate or prosecute any alcohol or drug abuse patient.[facility] the event this information is protected by the Federal Confidentiality of Alcohol and Drug Abuse Patient Records regulations: The Federal rules restrict any use of the information to criminally investigate or prosecute any alcohol or drug abuse patient.[facility] the event this information is protected by the Federal Confidentiality of Alcohol and Drug Abuse Patient Records regulations: The Federal rules restrict any use of the information to criminally investigate or prosecute any alcohol or drug abuse patient.[facility] the event this information is protected by the Federal Confidentiality of Alcohol and Drug Abuse Patient Records regulations: The Federal rules restrict any use of the information to criminally investigate or prosecute any alcohol or drug abuse patient.[facility] the event this information is protected by the Federal Confidentiality of Alcohol and Drug Abuse Patient Records regulations: The Federal rules restrict any use of the information to criminally investigate or prosecute any alcohol or drug abuse patient.[facility] Reason for Visit (unrecogniz ed section and content) Reason Comments Consult colonoscopy Reason Comments 11/08 colon asc Procedure Follow Up colonoscopy 11/09/19 22 Reason Comments Follow Up colonoscopy Reason Comments Consult Abnormal Mammogram Reason Comments Follow Up Right breast biopsy results Reason Comments Follow Up 6 month follow up [facility] breast biopsy Care Teams (unrecognized sec tion and content) Acct Exec Relationship Specialty Start Date End Date Sharif Brown MD PCP - General Family Practice 08/27/13 Acct Exec Relationship Specialty Start Date End Date Sharif Brown MD PCP - General Family Practice 08/27/13 Acct Exec Relationship Specialty Start Date End Date Sharif Brown MD PCP - General Family Practice 08/27/13 Acct Exec Relationship Specialty Start Date End Date Sharif Brown MD PCP - General Family Practice 08/27/13 Acct Exec Relationship Specialty Start Date End Date Sharif Brown MD PCP - General Family Practice 08/27/13 Acct Exec Relationship Specialty Start Date End Date Sharif Brown MD PCP - General Family Practice 08/27/13 Acct Exec Relationship Specialty Start Date End Date Sharif Brown MD PCP - General Family Practice 08/27/13 Acct Exec Relationship Specialty Start Date End Date Sharif Brown MD PCP - General Family Medicine 08/27/13 Acct Exec Relationship Specialty Start Date End Date Sharif Brown MD PCP - General Family Medicine 08/27/13 Team Status: Active Member Role Status Dates Dr. Sharif Brown MD Family Provider Active Dr. Sharif Brown MD Primary Care Provider Active Team Status: Inactive Member Role Status Dates Dr. Sharif Brown MD Primary Care Provider, Referring Errol clinton Active Sesar ANDERSEN, PA Attending Provider Active Team Status: Inactive Member Role Status Dates Dr. Sharif Brown MD Primary Care Provider Active Sesar ANDERSEN, [place] Attending Provider Active INFORMATION SOURCE (unrecogn ized section and content) DATE CREATED AUTHOR 11/18/2021 [facility] DATE CREATED AUTHOR AUTHOR'S ORGANIZ ATION 07/02/2022 [facility] DATE CREATED AUTHOR AUTHOR'S ORGANIZ ATION 10/04/2024 [facility] Goals (unrecognized section and content) Goals may be documented in a n alternate sectionGoals may be documented in an alternate sectionGoals may be documented in an alternate sectionGoals may be documented in an alternate section FOR RECORDS PERTAINING TO PATIENTS WHO ARE OR HAVE BEEN ENROLLED IN A CHEMICAL DEPENDENCY/SUBSTANCEABUSE PROGRAM, SOME INFORMATION MAY BE OMITTED. This clinical summary was aggregated from multiple sources. Caution should be exercised in using it in the provision of clinical care. This summary normalizes information from multiple sources, and as a consequence, information in this document may materially change the coding, format and clinical context of patient data. In addition, data may be omitted in some cases. CLINICAL DECISIONS SHOULD BE BASED ON THE PRIMARY CLINICAL RECORDS. [employer] provides no warranty or guarantee of the accuracy or completeness of information in this document.
== END | disposition home or self-care (01) ==
PROVIDERS: PCP Family Medicine; Referring Provider Family Medicine; Visit Provider Family Medicine
DX: Z12.31 Encounter for screening mammogram for malignant neoplasm of breast (principal)
CPT/HCPCS: 77063; 77067

== ENCOUNTER → 2025-03-02 | Outpatient (CLI) | payer BC, SELFPAY ==
[2025-03-02 15:04] LABS: Hematocrit 42.7 % (37-47); Hemoglobin 14.5 g/dL (12.0-15.0); Immature Granulocytes Count 0.010 X10^3/uL (0.0-0.0); Mean Corp Hgb Conc 34.0 g/dL (32-36); Mean Corpuscular Volume 83.6 fL (81-99); Mean Platelet Vol. 10.4 fl (6.2-12.0); NRBC Flagged by Analyzer 0 % (0-5); Platelet Count 310 K/mm3 (150-450); RBC Distribution Width CV 13.6 % (11.6-14.6); RBC Distribution Width SD 41.7 fl (35.1-43.9); Red Blood Count 5.11 M/mm3 (4.2-5.4); White Blood Count 8.3 K/mm3 (4.4-11.0)
[2025-03-02 15:46] LABS: AST(SGOT) 18 U/L (<=31); Alanine Aminotransfer ALT/SGPT 14 U/L (<=34); Albumin, Serum 4.5 g/dL (3.4-4.8); Alkaline Phosphatase 81 U/L (35-104); Anion Gap 9 (5-15); BUN 23 mg/dL (4-19); BUN/Creat Ratio 26.9 RATIO (10-20); Calcium,Total 9.6 mg/dL (7.6-11.0); Carbon Dioxide 25.0 mmol/L (21.0-32.0); Chloride 106 mmol/L (98-108); Globulin 3.1 g/dL (2.2-4.2); Glucose 97 mg/dL (70-99); Potassium 4.4 mmol/L (3.3-5.1); Vitamin D,25 Hydroxy 19.2 ng/mL (30-100)
== END | disposition home or self-care (01) ==
LOC: MTLAB 11:05
PROVIDERS: PCP Family Medicine; Referring Provider Family Medicine; Visit Provider Family Medicine
DX: G43.909 Migraine, unspecified, not intractable, without status migrainosus (principal); F41.9 Anxiety disorder, unspecified; R20.8 Other disturbances of skin sensation
CPT/HCPCS: 36415; 80053; 82306; 84443; 85025